=== PATIENT | male | born 1945 | race Caucasian/White ===

== ENCOUNTER 2016-08-09 16:00 | Inpatient (IN) | payer MEDICARE, OTHER ==
--- NOTE | 2016-08-09 16:09 | HP ---
SUPERVISING PHYSICIAN: Krish Hameed MD CHIEF COMPLAINT: Cough and shortness of breath. HISTORY OF PRESENT ILLNESS: This is a 71 year-old male patient who was seen in his primary care physician's office, Dr. Krish Hameed, today for a cough as well as shortness of breath. He has a longstanding history of chronic obstructive pulmonary disease as well as diabetes and esophageal cancer. He is normally very active but in the office today he was very fatigued, he was actually weak and stumbling around. His oxygen saturation in the office was 92 % but he had increased work of breathing. His chest x-ray showed left lower lobe pneumonia. He also has a history of deep venous thrombosis and is on Coumadin. Dr. Hameed called me for admission to the hospital. PAST MEDICAL HISTORY: 1. Acute CVA. 2. Chronic obstructive pulmonary disease. 3. Diabetes. 4. Esophageal cancer. 5. Hypertension. 6. Rheumatoid arthritis. 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 PAST SURGICAL HISTORY: 1. Hernia repair. 2. Pacemaker implantation. 3. Spinal surgery. 4. Breast biopsy. 5. Bilateral elbow surgery. 6. Bilateral shoulder surgery. 7. Multiple skin cancer removals. CURRENT MEDICATIONS: Outpatient medications are per the EMR and are awaiting verification. ALLERGIES: NO KNOWN DRUG ALLERGIES. SOCIAL HISTORY: He smoked for many years but quit approximately 5 years ago. He denies any ETOH or illicit drug use. He is , he has 7 children. REVIEW OF SYSTEMS: Positive for fatigue. Negative for fever or weight changes. HEENT: Positive for watery nasal discharge. Denies any ear pain, vision changes or sore throat. RESPIRATORY: Positive for cough and shortness of breath. Denies wheezing. CARDIAC: Denies chest pain, palpitations or tachycardia. GI: Denies nausea, vomiting, diarrhea, constipation or abdominal pain. NEUROLOGICAL: Denies dizziness, headache or seizures. PHYSICAL EXAMINATION: VITAL SIGNS: He is afebrile. Heart rate 62, blood pressure 97/68. Respiratory rate 20. 02 saturation is 92%. GENERAL: This is a 71 year-old male patient who is lying in his hospital bed. He is somewhat disheveled and he appears moderately ill. HEENT: Normocephalic and atraumatic. Pupils equal and reactive. Oropharynx is clear. NECK: Supple without masses. CHEST: He has coarse breath sounds throughout with occasional wheezing in the apices. He does have a slightly increase work of breathing. CARDIOVASCULAR: Regular rate and rhythm. ABDOMEN: Soft, nondistended, non-tender. Bowel sounds are positive. EXTREMITIES: No cyanosis, clubbing, or edema. NEUROLOGIC: He is awake, alert, and oriented x3. LABORATORY: At A, glucose 134, BUN 24, creatinine 1, sodium 141, potassium 4.3, chloride 106. C02 of 23, calcium 9.3. His INR was slightly elevated at 3.5, WBC elevated at 11,300. Hemoglobin 15.2, hematocrit 44.2, platelet count 148,000. All other labs and films have been reviewed via the EMR. ASSESSMENT: 1. Acute exacerbation of chronic obstructive pulmonary disease. 2. Left lower lobe pneumonia. 3. Weakness most likely secondary to #1 and #2. 4. History of DVT with elevated INR. 5. Hypertension. 6. Diabetes mellitus. 7. History of esophageal cancer. 8. History of CVA. PLAN: We will admit the patient to the hospital. We will give him routine as well as p.r.n. breathing treatments. He has been started on Levaquin as well as prednisone and also started him on sliding scale insulin. I will check his lab in the morning including a PT/INR. Also ordered bronchial hygiene and have encouraged good pulmonary toilet. Tomorrow I will need to order an ambulation study and we may need physical therapy if he continues to have the weakness. I will need to restart his Coumadin tomorrow at a lower dose as well as restart his home medications. Otherwise, we will monitor the patient closely and follow as needed. Dr. Hameed is the collaborating physician and available for comparison. #[id number] [facility]
[2016-08-09] MEDS ORDERED: LEVALBUTEROL NEBS 1.25 MG/3 ML VIAL INH PRN (17:11)
[2016-08-09] MEDS ORDERED: SODIUM CHLORIDE 0.9% (FLUSH) 10 ML SYG IV PRN (17:11)
[2016-08-09] MEDS ORDERED: GLUCAGON INJ 1 MG VIAL SUBCU PRN (17:11)
[2016-08-09] MEDS ORDERED: DEXTROSE 50% 25 GM/50 ML SYG IV PRN (17:11)
[2016-08-09] MEDS ORDERED: ACETAMINOPHEN 325 MG TAB PO PRN (17:11)
[2016-08-09] MEDS ORDERED: TEMAZEPAM 15 MG CAP PO PRN (17:11)
[2016-08-09] MEDS ORDERED: IV SET AND CAP CHANGE INJ INJ SCH (17:30)
[2016-08-09] MEDS: IPRATROPIUM/ALBUTEROL 3 ML VIAL INH SCH ×2 (17:52→21:00)
[2016-08-09] MEDS: methylPREDNISolone SODIUM SUC 125 MG/2 ML VIAL IV SCH ×2 (18:02→23:45)
[2016-08-09] MEDS: KCL 20MEQ/0.45% NS 1,000 ML IVS SCH (18:09)
[2016-08-09] MEDS: levoFLOXacin 750MG IV 750 MG in PREMIX BAG 1 BAG IVPB SCH (18:26)
[2016-08-09] MEDS: INSULIN LISPRO 100 UNITS/ML PEN SUBCU SCH (22:48)
[2016-08-10] MEDS ORDERED: LEVALBUTEROL NEBS 1.25 MG/3 ML VIAL INH SCH
[2016-08-10] MEDS: KCL 20MEQ/0.45% NS 1,000 ML IVS SCH ×2 (05:35→15:18)
[2016-08-10] MEDS: methylPREDNISolone SODIUM SUC 125 MG/2 ML VIAL IV SCH ×2 (05:35→11:43)
--- NOTE | 2016-08-10 06:58 | RAD ---
Clinical History : Pneumonia , MAIN Exam : PA and lateral views of the chest 08/10/2016 7:00 AM CDT Comparisons : Portable AP view of the chest August 30, 2014 Findings : There is a left subclavian MediPort with its tip in the distal SVC. There is a right chest 2-lead pacer in place. The lungs are low in volume which accentuates the pulmonary vasculature. There is patchy bibasilar subsegmental airspace disease. There is otherwise no focal consolidation or pleural effusion.. The heart is normal in size. The mediastinal contours are normal in appearance. There are vascular calcifications along the aortic arch. The thoracic spine is age appropriate. The shoulders are unremarkable. Limited evaluation of the upper abdomen demonstrates no gross abnormalities. Impression: Low lung volumes with patchy bibasilar airspace atelectasis versus infectious process. Electronically signed by: Zaynab Al MD 08/10/2016 6:58 AM CDT
[2016-08-10] MEDS: INSULIN LISPRO 100 UNITS/ML PEN SUBCU SCH ×4 (07:50→21:10)
[2016-08-10] MEDS: metFORMIN HCL 500 MG TAB PO SCH ×2 (07:56→17:08)
[2016-08-10] MEDS: METOPROLOL TARTRATE 50 MG TAB PO SCH ×2 (07:56→17:08)
[2016-08-10] MEDS ORDERED: AMIODARONE HCL 200 MG TAB ONE (08:56)
[2016-08-10] MEDS: POTASSIUM CHLORIDE 20 MEQ TAB PO SCH (09:00)
[2016-08-10] MEDS: TAMSULOSIN 0.4 MG CAP PO SCH (09:00)
[2016-08-10] MEDS: AMIODARONE HCL 200 MG TAB PO SCH (09:00)
[2016-08-10] MEDS: IPRATROPIUM/ALBUTEROL 3 ML VIAL INH SCH ×4 (09:11→20:35)
[2016-08-10] MEDS: LIDOCAINE 5% TD SCH (12:12)
[2016-08-10] MEDS: REMOVE OLD PATCH TOP SCH ×2 (12:15→21:18)
[2016-08-10] MEDS: levoFLOXacin 750MG IV 750 MG in PREMIX BAG 1 BAG IVPB SCH (17:10)
[2016-08-10] MEDS: methylPREDNISolone SODIUM SUC 40 MG/ML VIAL IV SCH (17:58)
[2016-08-10] MEDS ORDERED: PRAVASTATIN SODIUM 20 MG TAB PO SCH (21:00)
[2016-08-11] MEDS: methylPREDNISolone SODIUM SUC 40 MG/ML VIAL IV SCH ×2 (01:40→06:34)
[2016-08-11] MEDS: KCL 20MEQ/0.45% NS 1,000 ML IVS SCH (02:12)
[2016-08-11] MEDS: INSULIN LISPRO 100 UNITS/ML PEN SUBCU SCH (08:20)
[2016-08-11] MEDS: METOPROLOL TARTRATE 50 MG TAB PO SCH (08:21)
[2016-08-11] MEDS: POTASSIUM CHLORIDE 20 MEQ TAB PO SCH (08:21)
[2016-08-11] MEDS: metFORMIN HCL 500 MG TAB PO SCH (08:21)
[2016-08-11] MEDS: LIDOCAINE 5% TD SCH (08:30)
[2016-08-11] MEDS: IPRATROPIUM/ALBUTEROL 3 ML VIAL INH SCH ×2 (08:40→12:42)
--- NOTE | 2016-08-11 08:54 | PN ---
SUPERVISING PHYSICIAN: Krish Hameed MD DATE: 08/10/16 SUBJECTIVE: The patient is lying in his hospital bed. He denies any chest pain , abdominal pain, nausea or vomiting. He did say that he continues to get short of breath and he is very weak when he gets up, but he does feel better than yesterday. OBJECTIVE: VITAL SIGNS: Afebrile. Heart rate 70. Blood pressure 105/63. Respiratory rate 16. O2 saturation 91% on 2 liters nasal cannula. LUNGS: Coarse breath sounds throughout. He still does have an occasional respiratory wheeze in the apices, but improved over yesterday. CARDIAC: Regular rate and rhythm. ABDOMEN: Soft, nontender, nondistended. Bowel sounds are positive. NEUROLOGIC: Awake, alert and oriented times three. LABORATORY: WBC 5.7, hemoglobin 13.7, hematocrit 41.1. Sodium 137, potassium 4.5, chloride 105, carbon dioxide 24, BUN 24, creatinine 0.88. Blood sugars have run between 164 to 222. Chest x-ray per radiologic interpretation shows low lung volumes with patchy bibasilar airspace atelectasis versus infectious process. All other labs and films have been reviewed via the EMR. ASSESSMENT: 1. Acute exacerbation of chronic obstructive pulmonary disease. 2. Left lower lobe pneumonia, most likely community acquired and suspicious for strep pneumoniae, presently on Levaquin. 3. Weakness, most likely secondary to #1 and #2. 4. History of deep venous thrombosis with elevated INR. 5. Hypertension. 6. Diabetes mellitus. 7. History of esophageal cancer. 8. History of cerebrovascular accident. PLAN: We will continue present supportive care. I tapered down his steroids and will continue on his Levaquin. We will continue to monitor his blood cultures. I had ordered an ambulation study today and it has not bee completed as yet, so I will try to get that tomorrow to see how safe he will be to go home. Hopefully he can be discharged tomorrow or the next day as long as his oxygen saturations remain stable and he is safe to go home. I will also order some physical therapy. Otherwise, we will continue to monitor the patient closely and followup as needed. Dr. Hameed is the collaborating physician and available for consultation. #[id number] [facility]
[2016-08-11] MEDS: TAMSULOSIN 0.4 MG CAP PO SCH (09:38)
[2016-08-11] MEDS: AMIODARONE HCL 200 MG TAB PO SCH (09:38)
--- NOTE | 2016-08-11 14:24 | PCM.CORE ---
Physician DVT/VTE - Prophylaxis Currently: Patient already on anticoagulation therapy - Nurse DVT Assessment & Total Each Risk Factor Represents 3 Points: Medical PT with Hx of AR, CHF, Severe infection/sepsis Each Risk Factor Represents 2 Points: Age 60-74 Each Risk Factor is 1 Point: Serious Lung disease (pnemonia <1month, COPD, emphysema,etc) DVT Assessment Score: 6 - 5 or more Very High Risk Treatments: Early Ambulation *, Sequential Compression Device
[2016-08-11 15:50] VITALS: TEMP 97.6
[2016-08-11 15:55] VITALS: BP 114/68; O2SAT 98
--- NOTE | 2016-08-11 17:53 | DS ---
SUPERVISING PHYSICIAN: Kj Perdomo M.D. DISCHARGE DIAGNOSIS: 1. Acute exacerbation of chronic obstructive pulmonary disease. 2. Left lower lobe pneumonia, most likely community acquired and suspicious for strep pneumoniae, presently on Levaquin. 3. Weakness, most likely secondary to #1 and #2. 4. History of deep venous thrombosis with elevated INR. He has not been on Coumadin since his admission and his discharge INR has increased to 5.19. 5. Hypertension. 6. Diabetes mellitus. 7. History of esophageal cancer. 8. History of cerebrovascular accident. HISTORY OF PRESENT ILLNESS: This is a 71 year-old male patient who was seen in his primary care physician's office, Dr. Krish Hameed, for a cough as well as shortness of breath. He has a longstanding history of chronic obstructive pulmonary disease as well as diabetes and esophageal cancer. He is normally a very active person but in the office he was very fatigued as well as weak and was actually stumbling around. His oxygen saturation in the office was 92% but he had increased work of breathing. His chest x-ray showed a left lower lobe pneumonia. He also has a history of DVT and is on Coumadin. His INR was slightly elevated at the clinic and Dr. Hameed called me for hospital admission. HOSPITAL COURSE: The patient was placed on Levaquin as well as IV steroids. He was also given aggressive pulmonary hygiene with DuoNeb and Xopenex. His home medications were restarted with the exception of his Coumadin. He responded well to his therapy. Today, he is walking around in the hallways. His INR was repeated today and although his Coumadin has not been restarted, his INR has increased to 5.19. At this point, the patient states he feels much better and the patient has requested that he be discharged as his is now in the hospital and he is very concerned for her. VITAL SIGNS: He has been afebrile, oxygen saturation is in the mid 90s, blood pressure is 102/67. He did an ambulation study. During his study his saturations did not decrease below 95% without oxygen. DISCHARGE PLAN: The patient will be discharged home in stable condition. He is to resume his diabetic diet and increase his activity as tolerated. He will be sent home on Levaquin as well as a prednisone taper. His aerobic blood culture was positive at 48 hours. But final results are not available. He is to resume his DuoNeb and Albuterol. There was some question on his home medications about the breathing treatments he is actually on and according to his daughter as well as the patient, he is on DuoNeb and Albuterol, so he is to continue those. He has a followup with Dr. Hameed next , the at 2: 15. He is to discontinue his Coumadin until he goes to Dr. Hameed' office on Sunday to have his PT and INR done, and he will receive instructions from Dr. Hameed at that time as to what his Coumadin dosage should be. Otherwise he can call Dr. Hameed' office or return to the Emergency Room if there are any further complications or problems. DISCHARGE MEDICATIONS: 1. Flomax. 2. Pravastatin. 3. Potassium. 4. Metoprolol. 5. Metformin. 6. Lidocaine patch. 7. Amiodarone. 8. DuoNeb. 9. Levaquin. 10. Prednisone. #[id number] ADDENDUM: 08/13/16 Final aerobic blood culture shows no growth. [facility]
[2016-08-11] MEDS ORDERED: SODIUM CHLORIDE 0.9% (FLUSH) 10 ML SYG IV SCH (21:00)
== END 2016-08-11 15:00 | disposition home or self-care (01) | DRG 190 ==
LOC: MS 16:00
PROVIDERS: ADMIT Family Medicine; ATTEND Nurse Practitioner Acute Care
DX: J44.0 Chronic obstructive pulmonary disease with (acute) lower respiratory infection (principal); J13 Pneumonia due to Streptococcus pneumoniae; J44.1 Chronic obstructive pulmonary disease with (acute) exacerbation; R53.1 Weakness; I10 Essential (primary) hypertension; R79.1 Abnormal coagulation profile; M06.9 Rheumatoid arthritis, unspecified; E11.9 Type 2 diabetes mellitus without complications; Z86.73 Personal history of transient ischemic attack (TIA), and cerebral infarction without residual deficits; Z85.01 Personal history of malignant neoplasm of esophagus; Z86.718 Personal history of other venous thrombosis and embolism; Z95.0 Presence of cardiac pacemaker; Z87.891 Personal history of nicotine dependence; Z79.01 Long term (current) use of anticoagulants

== ENCOUNTER 2016-09-10 12:26 | Emergency (ER) | payer MEDICARE, OTHER ==
[2016-09-10 12:44] VITALS: TEMP 96.1
--- NOTE | 2016-09-10 13:59 | ED.PDOC ---
History of Present Illness - General Chief Complaint: Problem Stated Complaint: right sided back pain,difficulty urinating Time Seen by Provider: 09/10/16 12:37 Source: patient Exam Limitations: no limitations - History of Present Illness Initial Comments: Patient presents with right flank and lower back pain for 3 hours. He first felt it in [facility] this morning. The pain starts in the right flank and radiates to the groin. It is constant but intermittent in intensity. It is sharp and shooting in nature. No previous episodes. Denies hx of prostate problems. He has not noticed a change in urine color/dysuria/frequency. No fever. Timing/Duration: 1-3 hours Severity: moderate Improving Factors: nothing Worsening Factors: nothing Associated Symptoms: denies symptoms Allergies/Adverse Reactions: Allergies NO KNOWN ALLERGY Allergy (Unverified 07/09/14 10:39) Home Medications: Ambulatory Orders Amiodarone HCl 200 mg PO DAILY 08/09/16 Lidocaine Patch 5 % TD DAILY 08/09/16 Metformin HCl 500 mg PO BIDFD 08/09/16 Metoprolol Tartrate 50 mg PO BIDFD 08/09/16 Potassium Chloride [K-Tab] 20 meq PO DAILYBK 08/09/16 Pravastatin Sodium 40 mg PO BEDTIME 08/09/16 Tamsulosin [Flomax] 0.4 mg PO DAILY 08/09/16 Ipratropium/Albuterol [Duoneb] 3 ml INH RTQID 08/11/16 Levofloxacin [Levaquin] 500 mg PO DAILY #5 tab 08/11/16 Prednisone See Taper PO DAILY #30 shelbi 08/11/16 Review of Systems - Review of Systems Constitutional: States: no symptoms reported EENTM: States: no symptoms reported Respiratory: States: no symptoms reported Cardiology: States: no symptoms reported Gastrointestinal/Abdominal: States: no symptoms reported Genitourinary: States: see HPI Musculoskeletal: States: no symptoms reported Skin: States: no symptoms reported Neurological: States: no symptoms reported Endocrine: States: no symptoms reported Hematologic/Lymphatic: States: no symptoms reported Past Medical History (General) - Patient Medical History Hx Seizures: No Hx Stroke: Yes Hx Dementia: No Hx Asthma: No Hx of COPD: Yes Hx Cardiac Disorders: Yes - Pacemaker Hx Congestive Heart Failure: No Hx Pacemaker: Yes Hx Hypertension: No Hx Thyroid Disease: No Hx Diabetes: Yes Hx Gastroesophageal Reflux: No Hx Renal Disease: No Hx Cancer: Yes - Esophageal Hx of HIV: No Hx Hepatitis C: No Hx MRSA: No Surgical History: pacemaker - Vaccination History Hx Tetanus, Diphtheria Vaccination: Yes Hx Influenza Vaccination: Yes Hx Pneumococcal Vaccination: Yes - Social History Hx Tobacco Use: Yes Hx Chewing Tobacco Use: No Hx Alcohol Use: No Hx Substance Use: No Hx Substance Use Treatment: No Hx Depression: No Hx Physical Abuse: No Hx Emotional Abuse: No Hx Suspected Abuse: No Family Medical History - Family History Mother Family History: Unknown Living Status: Physical Exam - Physical Exam General Appearance: Alert Respiratory: lungs clear Cardiovascular/Chest: regular rate, rhythm Gastrointestinal/Abdominal: normal bowel sounds, non tender, soft Back Exam: CVA tenderness (R) Extremity: no pedal edema Skin Exam: normal color Progress - Progress Progress: 09/10/16 16:51 UA showed large blood. CT abd/pelvis showed enlarge prostate pressing on the bladder which could explain the hematuria. There was no obstructing stone but there was a free floating one in the left renal pelvis measuring 3 mm. There was some indication that the distal abdominal aorta was mildly dilated but it was unclear if there was disecction. Laboratories were taken and the creatinine checked. Repeat CT ab/pelvis with IV contrast confirmed mild aortic dilation but no aortic dissection. Patient was discharged with orders to not take his metformin for two days and to call his regular doctor tomorrow to address his prostate enlargement. Questions were elicited and answered. Patient voiced understanding and agreement with this plan. Departure - Departure Clinical Impression: Retention of urine, Prostatitis, Hematuria, Aortic aneurysm Disposition: Discharge to Home or Self Care Condition: Good Departure Forms: ED Discharge - Pt. Copy, Patient Portal Self Enrollment Diet: resume usual diet Activity: increase activity as tolerated Referrals: Krish Hameed MD [Primary Care Provider] - 1-2 Weeks Home Medications: Ambulatory Orders Amiodarone HCl 200 mg PO DAILY 08/09/16 Lidocaine Patch 5 % TD DAILY 08/09/16 Metformin HCl 500 mg PO BIDFD 08/09/16 Metoprolol Tartrate 50 mg PO BIDFD 08/09/16 Potassium Chloride [K-Tab] 20 meq PO DAILYBK 08/09/16 Pravastatin Sodium 40 mg PO BEDTIME 08/09/16 Tamsulosin [Flomax] 0.4 mg PO DAILY 05/17/17 Ipratropium/Albuterol [Duoneb] 3 ml INH RTQID 08/11/16 Levofloxacin [Levaquin] 500 mg PO DAILY #5 tab 08/11/16 Prednisone See Taper PO DAILY #30 shelbi 08/11/16 Additional Instructions: Do not restart your metformin until sunday. Call your regular doctor tomorrow and get an appointment regarding your enlarged prostate.
[2016-09-10 14:14] VITALS: O2SAT 96
--- NOTE | 2016-09-10 14:24 | CT ---
EXAM: CT ABDOMEN AND PELVIS WITHOUT CONTRAST DATE: 09/10/2016 1:39 PM CDT INDICATION: Hematuria, right flank pain COMPARISON: Chest x-ray 08/10/2016 TECHNIQUE: CT acquisition of the abdomen and pelvis after the intravenous administration contrast was performed. Coronal and sagittal reconstructions were performed. . Oral contrast none. Total radiation dose DLP: 839.21 mGy-cm FINDINGS: Lines, tubes and hardware: None. Lower thorax: Basilar mild interstitial lung disease. Subpleural patchy scarring in the lingula, image 9, series 2. Liver: Normal. Biliary tree: No intra- or extrahepatic biliary ductal dilation. Gallbladder: Normal. No CT evidence of gallstones. Pancreas: Fatty infiltration of the pancreas. Spleen: Normal. Adrenals: Normal. Kidneys and ureters: There is bilateral perinephric stranding. Mild right pelviectasis. There is a nonobstructive 3 mm calculus in the lower pole of left kidney. The ureters are normal in caliber without evidence of calculi. Bladder: Underdistended. The prostate indents into the inferior aspect. Reproductive organs: Mildly enlarged prostate gland measuring 5.7 cm. There is calcification of the corpora amylacea. Gastrointestinal tract: Nondistention of the descending colon and sigmoid colon. Remainder of the bowel is unremarkable. Appendix: Appendectomy. Peritoneum and retroperitoneum: No ascites or free air. No other fluid collection. Lymph nodes: Normal. Vasculature: Atherosclerosis of the abdominal aorta and iliac vessels with areas of focal dissection. Bones: There is a lytic lesion with start margins in the right iliac bone, image 69, series 2. There is posterior spinal fusion at L5-S1. Mild fusiform dilation of the distal abdominal aorta measuring 2.1 cm. Soft tissues: Normal. IMPRESSION: Mild fusiform ectasia of the distal abdominal aorta measuring up to 2.1 cm with atherosclerosis and focal areas of dissection. If there is clinical concern, a CTA of the abdomen and pelvis should be performed. Mild left pelviectasis without obstructive calculus identified. There is a 3 mm nonobstructive S and inferior pole of the kidney. Nonspecific right iliac lytic lesion. Recommend correlation with bone scan or MR on nonemergent basis. Mild interstitial lung disease in the visualized. AAA Size: Follow-up Recommendation : 2.6-2.9 cm Every 5 years 3.0-3.4 cm Every 3 years 3.5-3.9 cm Every 1 year 4.0-4.4 cm Every 1 year, vascular consultation recommended 4.5-5.4 cm Every 6 months, vascular consultation recommended >5.5 cm Vascular surgery consultation recommended 1. J Vasc Surg. 2009 Dec;50(4 Suppl):S2-49 2. For aortas with maximum diameter of 2.6-2.9 cm meeting the criteria for AAA (>50% of proximal normal segment) Electronically signed by: Lisa Desai MD 09/10/2016 2:22 PM CDT
[2016-09-10 16:17] VITALS: BP 125/77
--- NOTE | 2016-09-10 16:48 | CT ---
EXAM: CT ABDOMEN AND PELVIS WITH CONTRAST DATE: 09/10/2016 3:27 PM CDT INDICATION: Aortic dissection COMPARISON: Same day earlier CT abdomen pelvis without contrast TECHNIQUE: CT acquisition of the abdomen and pelvis after the intravenous administration contrast was performed. Coronal and sagittal reconstructions were performed. Further delayed images were performed. . Oral contrast none. Total radiation dose DLP: 784.85 mGy-cm FINDINGS: Lines, tubes and hardware: None. Lower thorax: Interstitial lung disease Liver: Normal. Biliary tree: No intra- or extrahepatic biliary ductal dilation. Gallbladder: Normal. No CT evidence of gallstones. Pancreas: Fatty infiltration Spleen: Normal. Adrenals: Normal. Kidneys and ureters: Too small to characterize hypodensity in superior pole of right kidney, image 29 and medially, image 37. 3 mm left renal calculus is again seen. Prior mild left pelviectasis has resolved and may have been due to mild reflux. Bladder: Normal. Reproductive organs: Prostamegaly with indentation and inferior aspect of the bladder. It measures 5.6 cm. Gastrointestinal tract: Normal caliber. Appendix: Appendectomy Peritoneum and retroperitoneum: No ascites or free air. Lymph nodes: Normal. Vasculature: Atherosclerosis calcification of the abdominal aorta with calcified and noncalcified areas of plaque. There is no evidence of dissection. Mild fusiform dilation of the distal aorta. Atherosclerotic calcification also present in the iliac vessels with calcified and noncalcified plaque. Bones: Lytic right iliac lesion again seen. Soft tissues: Normal. IMPRESSION: No evidence of aortic dissection. Mild fusiform dilation of the distal abdominal aorta with calcified and noncalcified plaque. Recommend follow-up with ultrasound in one year. Heterogeneous enlarged prostate gland can be correlated with PSA levels. Other findings are unchanged as earlier perform CT. Please see above. Electronically signed by: Lisa Desai MD 09/10/2016 4:47 PM CDT
== END 2016-09-10 17:00 | disposition home or self-care (01) ==
LOC: ER 12:26
DX: N41.9 Inflammatory disease of prostate, unspecified (principal); R33.9 Retention of urine, unspecified; R31.9 Hematuria, unspecified; I71.4 Abdominal aortic aneurysm, without rupture; N20.0 Calculus of kidney; E11.9 Type 2 diabetes mellitus without complications; J44.9 Chronic obstructive pulmonary disease, unspecified; Z95.0 Presence of cardiac pacemaker; Z86.73 Personal history of transient ischemic attack (TIA), and cerebral infarction without residual deficits; Z85.01 Personal history of malignant neoplasm of esophagus; Z79.899 Other long term (current) drug therapy; Z87.891 Personal history of nicotine dependence

== ENCOUNTER → 2016-09-11 | Outpatient (CLI) | payer MEDICARE, OTHER | END | disposition home or self-care (01) | LOC: GMAJ 10:29 | PROVIDERS: ATTEND Family Medicine | DX: N41.0 Acute prostatitis (principal); Z12.5 Encounter for screening for malignant neoplasm of prostate ==

== ENCOUNTER → 2016-09-12 | Outpatient (CLI) | payer MEDICARE, OTHER | END | disposition home or self-care (01) | LOC: GMA 15:51 | PROVIDERS: ATTEND Nurse Practitioner Acute Care | DX: N41.0 Acute prostatitis (principal) ==

== ENCOUNTER 2017-07-11 10:54 | Emergency (ER) | payer MEDICARE, OTHER ==
--- NOTE | 2017-07-11 11:27 | ED.PDOC ---
History of Present Illness - General Chief Complaint: GI Problem Stated Complaint: Unable to have a bowel movement Time Seen by Provider: 07/11/17 11:21 Information Source: patient, family Exam Limitations: no limitations Additional Information: THIS PATIENT COMES TO THE ED WITH A ONE WEEK HISTORY OF CONSTIPATION. HE VOICES THAT HE HAS BEEN UNABLE TO HAVE A BM AND NOW C/O PAIN TO THE ABDOMEN AND RECTAL AREA. HE HAS BEEN DIGGING THE ANAL AND RECAL AREA WITH HIS HAND AND NOW C/O RECTAL BLEEDING. THE PATIENT HAS A HX OF CA OF THE ESOPHAGUS AND ATRIAL FIBRILLATION. ON COUMADIN AND ON AMIODARONE. HE USED TO HAVE HTN AND DIABETES MELLITUS ii BUT AFTER HE DEVELOPED CANCER OF THE ESOPHAGUS HE HAS LOST ABOUT 40 LBS. HE NO LONGER TAKES MEDS. - History of Present Illness Abdominal Pain Onset Location: generalized abdomen Review of Systems - Review of Systems Constitutional: States: malaise EENTM: States: no symptoms reported Respiratory: States: no symptoms reported Cardiology: States: no symptoms reported Gastrointestinal/Abdominal: States: abdominal pain, constipation, other - RECTAL BLEEDING Genitourinary: States: no symptoms reported Musculoskeletal: States: no symptoms reported Skin: States: no symptoms reported Neurological: States: no symptoms reported Endocrine: States: no symptoms reported Hematologic/Lymphatic: States: no symptoms reported All other Systems: Reviewed and Negative, No Change from Baseline Past Medical History (General) - Patient Medical History Hx Seizures: No Hx Stroke: Yes Hx Dementia: No Hx Asthma: No Hx of COPD: Yes Hx Cardiac Disorders: Yes - Pacemaker Hx Congestive Heart Failure: No Hx Pacemaker: Yes Hx Hypertension: No Hx Thyroid Disease: No Hx Diabetes: Yes Hx Gastroesophageal Reflux: No Hx Renal Disease: No Hx Cancer: Yes - Esophageal Hx of HIV: No Hx Hepatitis C: No Hx MRSA: No - Vaccination History Hx Tetanus, Diphtheria Vaccination: Yes Hx Influenza Vaccination: No Hx Pneumococcal Vaccination: No - Social History Hx Tobacco Use: Yes Hx Chewing Tobacco Use: No Hx Alcohol Use: No Hx Substance Use: No Hx Substance Use Treatment: No Hx Depression: No Hx Physical Abuse: No Hx Emotional Abuse: No Hx Suspected Abuse: No Family Medical History - Family History Mother Family History: Unknown Living Status: Physical Exam - Physical Exam General Appearance: Alert, Well Developed, Well Groomed, Well Hydrated, Well Nourished, Other - IN MILD DISTRESS Eyes, Ears, Nose, Throat Exam: PERRL/EOMI, normal ENT inspection, other - PTOSIS OF THE RIGHT UPPER LID-SEQUALAE FROM A STROKE Neck: non-tender, full range of motion, supple, normal inspection Respiratory: chest non-tender, lungs clear, normal breath sounds, no respiratory distress, no accessory muscle use Cardiovascular/Chest: normal peripheral pulses, regular rate, rhythm, no edema, no gallop, no JVD, no murmur Peripheral Pulses: No deficit Gastrointestinal/Abdominal: normal bowel sounds, distended, tenderness - TO ALL QUADRANTS Back Exam: normal inspection Extremity: normal range of motion Neurologic: conservation coordinator II-XII nml as tested, oriented x 3 Skin Exam: normal color, warm/dry Lymphatic: no adenopathy - THE PATIENT HAS A G-TUBE Progress - Progress Progress: 07/11/17 12:53 THE LAB AND IMAGING HAS BEEN REPORTED. HE HAS PNEUMOPERITONEUM, LIKELY TO BE DUE FROM THE RECENT PROCEDURE. THE WBC IS 13.8 WITH 90% NEUTROPHILS. DR. CALDERÓN HAPPENED TO BE IN THE BUILDING AND HE CAME AND CONSULTED ON THE PATIENT. A RECTAL WAS PERFORMED BY HIM AND THERE WAS SOME HARD STOOL. HE RECOMMENDED AN ENEMA AND A CT ABDOMEN AND PELVIS WITH CONTRAST. - Results/Orders Results/Orders: LACTIC ACID IS 1.4 NORMAL. THE PATIENT WAS GIVEN AN ENEMA WITH POOR RESULTS. HE WILL BE GOING TO CT ABDOMEN SHORTLY CT ABDOMEN AND PELVIS REVEALS NO AREAS OF INFLAMMATION OR EDEMA AND NO OBSTRUCTION OR LEAKAGE. IT SEEMS THAT THE PNEUMOPERITONEUM IS FROM THE RECENT PROCEDURE. I HAVE NOTIFIED DR. THEO CALDERÓN AND THE PATIENT WILL BE DISCHARGED HOME WITH MIRALAX, FLEETS ENEMAS AND WITH GO LYTELY. Departure - Departure Clinical Impression: Constipation Qualifiers: Constipation type: unspecified constipation type Qualified Code(s): K59.00 - Constipation, unspecified Time of Disposition: 16:54 Disposition: Discharge to Home or Self Care Condition: Fair Departure Forms: ED Discharge - Pt. Copy, Patient Portal Self Enrollment Instructions: DI for Constipation Diet: bland diet Referrals: Krish Hameed MD [Primary Care Provider] - 1-2 Weeks Prescriptions: Peg [id number] Bicarb-Sod Ch [Golytely] 1 casey PO 5XD #1 casey Home Medications: Ambulatory Orders Amiodarone HCl 200 mg PO DAILY 08/09/16 Lidocaine Patch 5 % TD DAILY 08/09/16 Metformin HCl 500 mg PO BIDFD 08/09/16 Metoprolol Tartrate 50 mg PO BIDFD 08/09/16 Potassium Chloride [K-Tab] 20 meq PO DAILYBK 08/09/16 Pravastatin Sodium 40 mg PO BEDTIME 08/09/16 Tamsulosin [Flomax] 0.4 mg PO DAILY 08/09/16 Ipratropium/Albuterol [Duoneb] 3 ml INH RTQID 08/11/16 Levofloxacin [Levaquin] 500 mg PO DAILY #5 tab 08/11/16 Prednisone See Taper PO DAILY #30 shelbi 08/11/16 Peg [id number] Bicarb-Sod Ch [Golytely] 1 casey PO 5XD #1 casey 07/11/17
--- NOTE | 2017-07-11 12:22 | RAD ---
EXAM DESCRIPTION: Abdomen Series CLINICAL HISTORY: 72 years Male, abdominal pain COMPARISON: None. TECHNIQUE: Obstructive series including chest x-ray FINDINGS: Abnormal lucency under the diaphragm is seen consistent with pneumoperitoneum. This could be related to perforation of hollow viscus or recent laparoscopic surgery. Clinical correlation recommended. In the chest, Port-A-Cath on the left is seen with tip in the region of the upper right atrium. Cardiac pacer is in place with electrode lead tips in the region of right atrium and right ventricle. Epicardial pacer wires are present. Heart size is normal. No congestive failure. Minimal discoid atelectasis lung bases. Plate and screws are seen in the C-spine. Degenerative changes are seen in the shoulders with chronic rotator cuff atrophy. Gastrostomy tube is present in the region of the stomach. No small bowel dilatation to suggest obstruction. Supine x-ray view of abdomen shows orthopedic hardware at the lumbosacral junction and moderate amount fecal material in the colon. Degenerative spurring is seen in the L-spine. I called Dr. Mattson in the emergency department at 12:17 PM on 07/11/2017, to discuss the results and the patient had placement of feeding tube five days ago which may account for pneumoperitoneum. The amount of air is somewhat greater than usually expected one week after such a procedure. IMPRESSION: Pneumoperitoneum. See above. Electronically signed by: Diaz Georges MD 07/11/2017 12:21 PM CDT
[2017-07-11] MEDS: ONDANSETRON INJ 4 MG/2 ML VIAL IV ONE (12:39)
[2017-07-11] MEDS: MORPHINE SULFATE INJ 10 MG/ML VIAL IV ONE (12:39)
[2017-07-11 16:13] VITALS: O2SAT 96
--- NOTE | 2017-07-11 16:24 | CT ---
EXAM DESCRIPTION: Abdomen/Pelvis w/Contrast CLINICAL HISTORY: 72 years Male abdominal pain, pneumoperitoneum COMPARISON: 09/10/2016 TECHNIQUE: Contiguous axial images obtained through the abdomen and pelvis following IV contrast. Reformatted images obtained. This exam was performed according to our department optimization program which includes automated exposure control, adjustment of the mA and/or kv according to patient size and/or use of iterative reconstruction technique. FINDINGS: Gas in aorta is mildly prominent measuring 4.1 cm in the ascending segment. There is calcification in the aorta and its branches. Transvenous pacemaker and epicardial leads are noted. The liver, spleen and pancreas appear stable. There is a small hiatal hernia. No adrenal masses. The kidneys appear unremarkable. No hydronephrosis. The gallbladder is visualized. There is calcification in the abdominal aorta. Ectasia of the distal aorta is noted measuring 2.3 cm. No evidence of dissection. There is free intraperitoneal air as noted on the abdominal plain film. There is a PEG tube in place which appears to be within the gastric body. Suspect that the pneumoperitoneum is related to recent PEG tube placement. There is no additional evidence to suggest bowel obstruction or evidence of significant inflammatory change in the abdomen or pelvis. Trace amount of fluid is seen in the pelvis. This is also likely related to the recent procedure. There is also a small amount of fluid along the inferior aspect of the stomach anterior to the pancreas also likely related to small amount of residual fluid or hemorrhage from the PEG tube placement Moderate fecal material in the rectum and sigmoid colon which May reflect constipation. Spinal fusion at L5-S1. The appendix is not seen. IMPRESSION: Free intraperitoneal air as was noted on the plain film. Suspect that this is related to the recent placement of a PEG tube. Possibility of a small amount of gas leakage around the insertion of the PEG tube is not excluded. There is a small amount of fluid in the pelvis as well as a small amount of fluid in the central upper abdomen also likely related to recent PEG tube placement There is no evidence suggest bowel obstruction, bowel wall thickening or inflammation Additional changes as above Electronically signed by: Barbie Shahid MD 07/11/2017 4:22 PM CDT
[2017-07-11 18:18] VITALS: BP 112/64; TEMP 97
== END 2017-07-11 17:03 | disposition home or self-care (01) ==
LOC: ER 10:54
DX: K59.00 Constipation, unspecified (principal); J44.9 Chronic obstructive pulmonary disease, unspecified; E11.9 Type 2 diabetes mellitus without complications; Z95.0 Presence of cardiac pacemaker; Z85.01 Personal history of malignant neoplasm of esophagus
CPT/HCPCS: 36415; 74019; 74177; 80053; 83605; 85025; J2270; J2405

== ENCOUNTER → 2017-07-24 | Outpatient (CLI) | payer MEDICARE, OTHER | LOC: BFHH 10:32 | PROVIDERS: ATTEND Internal Medicine Hematology & Oncology | DX: R13.10 Dysphagia, unspecified (principal); J44.9 Chronic obstructive pulmonary disease, unspecified; K21.9 Gastro-esophageal reflux disease without esophagitis; I10 Essential (primary) hypertension; I48.91 Unspecified atrial fibrillation; C15.9 Malignant neoplasm of esophagus, unspecified; E11.9 Type 2 diabetes mellitus without complications; Z85.01 Personal history of malignant neoplasm of esophagus ==

== ENCOUNTER 2017-11-19 16:37 | Inpatient (IN) | payer MEDICARE, OTHER ==
[2017-11-19] MEDS ORDERED: ACETAMINOPHEN 325 MG TAB GT ONE (17:12)
[2017-11-19] MEDS ORDERED: cefTRIAXone SODIUM 1 GM in SODIUM CHL 0.9% 50ML MIN-BAG+ 50 ML IVPB ONE (17:16)
[2017-11-19] MEDS ORDERED: cefTRIAXone SODIUM 1 GM VIAL ONE (17:35)
[2017-11-19] MEDS ORDERED: SODIUM CHL 0.9% 50ML MIN-BAG+ 50 ML IVPB ONE ×3 (17:35→23:16)
--- NOTE | 2017-11-19 17:37 | CT ---
EXAM DESCRIPTION: Head CLINICAL HISTORY: ALTERED MENTAL COMPARISON: Previous study February 11, 2015 TECHNIQUE: Noncontrast head CT was performed with routine protocol. FINDINGS: Normal glaser-white matter differentiation. Ventricles and sulci are prominent consistent with age-related cerebral volume loss. Low density white matter is consistent with chronic microvascular ischemic change. No high density hemorrhage, focal edema or shift of the midline. No sulcal effacement. Normal orbital contents. Basilar cisterns appear clear. Intact calvarium with no fracture or lytic lesion. Normal aeration of tympanic cavities and mastoid air cells. No fluid levels in the paranasal sinuses. Skull base appears intact. Symmetrical internal auditory canals. Coronal and sagittal reformatted images confirm the findings. No worrisome change since previous study. IMPRESSION: No acute intracranial pathologic process. This exam was performed according to our departmental dose-optimization program, which includes automated exposure control, adjustment of the mA and/or kV according to patient size and/or use of iterative reconstruction technique. Total DLP equals 859.97 mGycm. Electronically signed by: Diaz Georges MD 11/19/2017 5:36 PM CDT
[2017-11-19] MEDS ORDERED: SODIUM CHLORIDE 0.9% 1000ML 1,000 ML ONE (18:19)
--- NOTE | 2017-11-19 18:20 | CT ---
EXAM: Chest w/o Contrast CLINICAL INDICATION: 72-year-old male with fever post upper GI. COMPARISON: None. EXAMINATION: CT chest was performed without contrast. This exam was performed according to our departmental dose optimization program which includes use of automated exposure control, adjustment of the mA and/or kV according to patient size and/or use of iterative reconstruction technique. FINDINGS: Chest: Large confluent reticulation and groundglass opacification of the LEFT lower lobe, with patchy areas of reticulation and groundglass interstitial opacification of the RIGHT upper and middle lobe concerning for multifocal pneumonia. Please correlate with patient clinical findings and consider follow-up for resolution to exclude the possibility of infiltrative neoplasm. Emphysema. No pneumothorax or pleural effusions. Heart size within normal limits. No pericardial effusion. Incompletely visualized transthoracic cardiac pacemaker wires on the LEFT terminating off the ipxvc-lb-poil of the examination, and on the RIGHT terminating at the level of the RIGHT chest wall battery pack. LEFT chest wall port catheter tip terminates at the SVC RIGHT atrial junction. Nonspecific thickening of the esophagus with thickening at the level of the gastroesophageal junction measuring up to 13 mm, may be postprocedural in etiology. Frothy fluid collection present within the mid esophagus may be secondary to secretions or reflux. There is dependent basilar atelectasis and scarring. The tracheobronchial airways are patent. No significant mediastinal or axillary lymphadenopathy by CT measurement criteria. Limited evaluation of the upper abdomen shows no acute intra-abdominal abnormalities. Incompletely visualized feeding tube at the level of the gastric body. External streak artifact limits evaluation through the upper abdomen. Diffuse fatty atrophy and replacement of the pancreas. The osseous structures review degenerative change. IMPRESSION: 1. Large confluent reticulation and groundglass opacification of the LEFT lower lobe, with patchy areas of reticulation and groundglass interstitial opacification of the RIGHT upper and middle lobe concerning for multifocal pneumonia. Please correlate with patient clinical findings and consider follow-up for resolution to exclude the possibility of infiltrative neoplasm. 2. Emphysema. 3. Nonspecific thickening of the esophagus, at the level of the gastroesophageal junction measuring up to 13 mm in thickness. Electronically signed by: Sandi Pennington MD 11/19/2017 6:19 PM CDT
[2017-11-19] MEDS ORDERED: SODIUM CHLORIDE 0.9% 1000ML 1,000 ML IVS PRN (18:23)
[2017-11-19] MEDS ORDERED: MEROPENEM 1 GM in SODIUM CHL 0.9% 50ML MIN-BAG+ 50 ML IVPB ONE (18:27)
[2017-11-19] MEDS ORDERED: MEROPENEM 1 GM VIAL IVPB ONE ×2 (18:38→23:16)
--- NOTE | 2017-11-19 18:38 | ED.PDOC ---
History of Present Illness - General Chief Complaint: Fever Time Seen by Provider: 11/19/17 16:50 Source: patient, family Exam Limitations: no limitations - History of Present Illness Initial Comments: The patient is a 72-year-old male presenting to the emergency room secondary to some confusion. The patient had a EGD performed with Dr. bernardo at [facility] this morning. He was released around 1 PM. Over the next 4-5 hours he started becoming more altered. By the time he arrived here he was showing some mild confusion but also had a temperature of 104.6. Blood pressures were mildly low upon arrival here in the 90s over 60s. He had been feeling fine before the endoscopy. He does have a history of esophageal cancer which is the reason that he was receiving his periodic endoscopy with the receiving worker. He does have a history of chronic lung disease and atrial fibrillation and does appear to be anticoagulated. Even at this time he does not appear to have any respiratory symptoms. Timing/Duration: 4-6 hours Severity: moderate Improving Factors: nothing Worsening Factors: nothing Associated Symptoms: diaphoresis, malaise Allergies/Adverse Reactions: Allergies NO KNOWN ALLERGY Allergy (Unverified 07/09/14 10:39) Home Medications: Ambulatory Orders Amiodarone HCl 100 mg PO DAILY 08/09/16 Lidocaine Patch 5 % TD DAILY 08/09/16 Tamsulosin [Flomax] 0.4 mg PO DAILY 08/09/16 Ipratropium/Albuterol [Duoneb] 3 ml INH RTQID 08/11/16 Citalopram Hydrobromide [Citalopram] 10 mg PO DAILY 11/19/17 Review of Systems - Review of Systems Constitutional: States: diaphoresis, fever, malaise EENTM: States: no symptoms reported - chronic changes only Respiratory: States: no symptoms reported Cardiology: States: no symptoms reported Gastrointestinal/Abdominal: States: see HPI Genitourinary: States: no symptoms reported Musculoskeletal: States: no symptoms reported Skin: States: no symptoms reported Neurological: States: other - confusion Endocrine: States: no symptoms reported All other Systems: No Change from Baseline Past Medical History (General) - Patient Medical History Hx Seizures: No Hx Stroke: Yes Hx Dementia: No Hx Asthma: No Hx of COPD: Yes Hx Cardiac Disorders: Yes - Pacemaker Hx Congestive Heart Failure: No Hx Pacemaker: Yes Hx Hypertension: No Hx Thyroid Disease: No Hx Diabetes: Yes Hx Gastroesophageal Reflux: No Hx Renal Disease: No Hx Cancer: Yes - Esophageal Hx of HIV: No Hx Hepatitis C: No Hx MRSA: No - Vaccination History Hx Tetanus, Diphtheria Vaccination: Yes Hx Influenza Vaccination: No Hx Pneumococcal Vaccination: No - Social History Hx Tobacco Use: Yes Hx Chewing Tobacco Use: No Hx Alcohol Use: No Hx Substance Use: No Hx Substance Use Treatment: No Hx Depression: No Hx Physical Abuse: No Hx Emotional Abuse: No Hx Suspected Abuse: No Family Medical History - Family History Mother Family History: Unknown Living Status: Physical Exam - Physical Exam General Appearance: Alert, Ill Appearing Eye Exam: right other - hronic changes to the right eye, left normal Ears, Nose, Throat: hearing grossly normal, normal pharynx Neck: full range of motion Respiratory: no respiratory distress, no accessory muscle use, rales - to the left base but good air movement Cardiovascular/Chest: normal peripheral pulses, no edema Peripheral Pulses: radial,right: 2+, radial,left: 2+ Gastrointestinal/Abdominal: non tender - G-tube in place, soft Rectal Exam: deferred Back Exam: normal inspection, no vertebral tenderness Extremity: non-tender, no calf tenderness, normal capillary refill, other - he does have trace edema bilateral lower extremities Neurologic: alert, other - initially the patient did exhibit some delirium which has improved significantly with correction the fever. Skin Exam: diaphoresis Comments: Vital Signs - 24 hr 11/19/17 11/19/17 11/19/17 16:48 17:30 18:07 Temperature 104.6 F H 103.0 F H Pulse Rate [ 102 H 99 H 97 H right brachial] Respiratory 20 22 18 Rate Blood Pressure 99/64 98/64 114/68 [left brachial] O2 Sat by Pulse 94 L 97 97 Oximetry Progress - Progress Progress: 11/19/17 18:42 the patient is a 72-year-old male presenting to emergency room secondary to delirium associated with what is most likely an acute pneumonia giving him a significant fever. He is mentating much better after the Tylenol. He is receiving a liter of IV fluids. Initially upon his arrival he did receive a gram of Rocephin even before the workup could be started. CT scan of the chest shows the pneumonia and no evidence of free air in the mediastinum. This is presumably an aspiration type pneumonia. The patient is also currently receiving a dose of meropenem. consideration could certainly be given to adding vancomycin. Laboratory work up is reassuring currently however I do greatly suspect that the next set of laboratory work will look significantly worse, even if he is improving clinically. Blood cultures have been drawn. He has not been unable to cough up anything for a sputum culture. - Results/Orders Results/Orders: the patient has a large area of left-sided pneumonia that appears to be acute on the CT scan of the chest. No evidence of free air in the mediastinum. 11/19/17 17:42 BLOOD CULTURE Stat Laboratory Results - last 24 hr 11/19/17 11/19/17 11/19/17 16:30 16:30 16:30 WBC 7.7 RBC 3.64 L Hgb 11.3 L Hct 33.7 L MCV 92.5 MCH 31.0 MCHC 33.5 RDW 18.1 H Plt Count 213 MPV 8.7 Absolute Neuts (auto) 6.00 Absolute Lymphs (auto) 1.10 Absolute Monos (auto) 0.50 Absolute Eos (auto) 0.20 Absolute Basos (auto) 0.00 Neutrophils % 77.4 Lymphocytes % 13.9 L Monocytes % 6.3 Eosinophils % 2.3 Basophils % 0.1 PT 22.3 H INR 2.25 H PTT (SP) 38.1 H Sodium Potassium Chloride Carbon Dioxide Anion Gap BUN Creatinine BUN/Creatinine Ratio Random Glucose Serum Osmolality Lactic Acid Calcium Total Bilirubin AST ALT Alkaline Phosphatase Creatine Kinase 16 L CK-MB (CK-2) 1.0 CK-MB (CK-2) % Not Reportable Troponin I < 0.02 B-Natriuretic Peptide 119.0 H Serum Total Protein Albumin Globulin Albumin/Globulin Ratio Amylase 63 Lipase Urine Color Urine Appearance Urine pH Ur Specific [place] Urine Protein Urine Glucose (UA) Urine Ketones Urine Blood Urine Nitrite Urine Bilirubin Urine Urobilinogen Ur Leukocyte Esterase Urine RBC Urine WBC Ur Epithelial Cells Urine Bacteria 11/19/17 11/19/17 11/19/17 16:30 17:42 17:50 WBC RBC Hgb Hct MCV MCH MCHC RDW Plt Count MPV Absolute Neuts (auto) Absolute Lymphs (auto) Absolute Monos (auto) Absolute Eos (auto) Absolute Basos (auto) Neutrophils % Lymphocytes % Monocytes % Eosinophils % Basophils % PT INR PTT (SP) Sodium 134 L Potassium 3.5 L Chloride 99 L Carbon Dioxide 25 Anion Gap 13.5 BUN 17 Creatinine 0.83 BUN/Creatinine Ratio 20.5 H Random Glucose 165 H Serum Osmolality 273.5 L Lactic Acid 1.4 Calcium 8.5 Total Bilirubin 0.7 AST 21 ALT 22 Alkaline Phosphatase 109 Creatine Kinase CK-MB (CK-2) CK-MB (CK-2) % Troponin I B-Natriuretic Peptide Serum Total Protein 6.1 L Albumin 3.1 L Globulin 3.0 Albumin/Globulin Ratio 1.0 L Amylase Lipase 16 L Urine Color Dk yellow Urine Appearance Sl cloudy Urine pH 6.0 Ur Specific [place] 1.025 Urine Protein 30 Urine Glucose (UA) 100 H Urine Ketones Negative Urine Blood Moderate H Urine Nitrite Negative Urine Bilirubin Negative Urine Urobilinogen 1.0 Ur Leukocyte Esterase Negative Urine RBC 20-30 H Urine WBC 0-1 Ur Epithelial Cells 0-1 Urine Bacteria Rare Departure - Departure Clinical Impression: Aspiration pneumonia Qualifiers: Aspiration pneumonia type: due to gastric secretions Laterality: left Lung location: unspecified part of lung Qualified Code(s): J69.0 - Pneumonitis due to inhalation of food and vomit Disposition: Admit Patient Referrals: Krish Hameed MD [Primary Care Provider] - 1-2 Weeks Home Medications: Ambulatory Orders Amiodarone HCl 100 mg PO DAILY 08/09/16 Lidocaine Patch 5 % TD DAILY 08/09/16 Tamsulosin [Flomax] 0.4 mg PO DAILY 08/09/16 Ipratropium/Albuterol [Duoneb] 3 ml INH RTQID 08/11/16 Citalopram Hydrobromide [Citalopram] 10 mg PO DAILY 11/19/17 Decision To Admit - Decistion To Admit Decision to Admit Reason: Medical Nature Decision to Admit Date: 11/19/17 Decision to Admit Time: 18:45
[2017-11-19] MEDS ORDERED: SODIUM CHLORIDE 0.9% 1000ML 500 ML IVS ONE (19:12)
[2017-11-19] MEDS ORDERED: methylPREDNISolone SODIUM SUC 125 MG/2 ML VIAL IV ONE (19:13)
[2017-11-19] MEDS ORDERED: VANCOMYCIN HCL INJ 1,000 MG in SODIUM CHLORIDE 0.9% 250ML 250 ML IVPB ONE (19:47)
[2017-11-19] MEDS ORDERED: VANCOMYCIN HCL INJ 1,000 MG VIAL IVPB ONE (20:01)
[2017-11-19] MEDS ORDERED: SODIUM CHLORIDE 0.9% 250ML 250 ML ONE (20:01)
--- NOTE | 2017-11-19 21:43 | HP ---
SUPERVISING PHYSICIAN: Ras Sifuentes M.D. CHIEF COMPLAINT: Altered mental status and fever. HISTORY OF PRESENT ILLNESS: This is a 72 year-old male patient who came to the Emergency Room after suddenly becoming confused. He was in [place] earlier today and got an EGD with Dr. Noel early this morning. The patient has a history of esophageal cancer and this was a routine study that he was having done. He was released from the hospital around 1:00 PM but over the next 4 to 5 hours after that he began to have altered mental status. That is why he was brought to the Emergency Room and upon arrival was noted to have a temperature of 104.6. Blood pressures were in the 90s systolically. His workup included labs as well as CT scan of the chest and the head due to the altered mental status. His CT scan of the brain did not show any acute findings. CT scan of the chest, however, showed left lower lobe ground glass opacification as well as right upper and middle lobe consolidation all concerning for pneumonia. Also, it did not rule out that it could possibly be an infiltrative neoplasm that would need followup on whether or not the infiltrate resolved. Anyhow, he did have a normal white count, however the patient is on chemotherapy for esophageal cancer and actually had a dose last Sunday. While in the Emergency Room he was given IV bolus fluids. His blood pressure went anywhere from the 80s to 90s systolically. Initially the E. R. physician felt that he could be septic, however, the family states his blood pressure is always on the low side. They even went home to get his blood pressure readings and in fact the patient always runs in the 80s and 90s systolically. The patient's mental status improved throughout the admission and his fever actually improved as well. He was given Rocephin, Merrem and actually vancomycin for antibiotic therapy. For these reasons, he has been referred for admission. At time of examination the patient is alert, a little bit tachypneic but without distress. He does have a little bit of confusion as well. PAST MEDICAL HISTORY: 1. Cerebrovascular accident. 2. Chronic obstructive pulmonary disease. 3. Diabetes. 4. Esophageal cancer. 5. Hypertension. 6. Rheumatoid arthritis. 7. 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 PAST SURGICAL HISTORY: 1. Hernia repair. 2. Pacemaker placement. 3. Spinal surgery. 4. Breast biopsy. 5. Bilateral elbow surgery. 6. Bilateral shoulder surgery. 7. PEG placement. 8. Multiple skin cancer removal. CURRENT MEDICATIONS: Please see the EMR record for those medications as they are still being verified. ALLERGIES: NO KNOWN DRUG ALLERGIES. FAMILY HISTORY: Reviewed and he does not really know any significant family history with his mother and father at this time. SOCIAL HISTORY: The patient has a history of smoking but quit approximately 6 years ago. No alcohol. No illicit drugs. REVIEW OF SYSTEMS: CONSTITUTIONAL: Positive for fever and chills. No recent weight loss or weight gain. HEENT: No headaches, nasal congestion or throat pain. RESPIRATORY: Positive for cough. No shortness of breath. No pleuritic chest pain. CARDIOVASCULAR: No chest pain, palpitations or peripheral edema. GASTROINTESTINAL: No nausea, vomiting, diarrhea or constipation. No abdominal pain but he does have esophageal cancer and had an EGD today, and he has a chronic PEG in place. GENITOURINARY: No dysuria, frequency or flank pain. HEMATOLOGIC: He does have a history of blood clots and is on chronic Warfarin therapy. He has not have any transfusion reactions. MUSCULOSKELETAL: Positive for chronic back pain. No joint pain or joint swelling at this time. NEUROLOGIC: Positive for confusion earlier but no syncope, seizures or paresthesias. ENDOCRINE: No polydipsia, polyuria or polyphagia. No heat or cold intolerance. PHYSICAL EXAMINATION: VITAL SIGNS: Blood pressure 105/68, heart rate 78, respiratory rate 20, temperature is currently 98.7 but was as high as 104.6 in the Emergency Room. O2 saturation was 97% on oxygen at 2 liters per minute. GENERAL: Mr. Kiran is an elderly male patient who is in mild respiratory distress currently. HEENT: Head is normocephalic and atraumatic. Eyes: Pupils are equal and reactive. Nose: No drainage. Throat: Moist mucosa. NECK: Supple. Midline trachea. No visible jugular venous distention. CHEST: Symmetrical with equal rise and fall of the chest with inspiration and expiration. Lung sounds with some coarse rhonchi bilaterally, diminished left lower lobe. CARDIOVASCULAR: The patient has a regular rate and rhythm. Normal S1 and S2. ABDOMEN: Soft, positive bowel sounds. No tenderness to palpation. He does have a PEG in place. GENITOURINARY: Deferred. EXTREMITIES: Lower extremities with no edema, 2+ pulses. Capillary refill is less than 2 seconds. NEUROLOGIC: The patient is pleasantly confused about certain questioning, but has no focal deficits and he responds accordingly. LABORATORY: Labs and films are discussed in the history of present illness. ASSESSMENT: 1. Multifocal pneumonia which is consistent with aspiration. 2. Chronic obstructive pulmonary disease with acute respiratory distress and possible exacerbation. 3. Altered mental status. 4. Esophageal cancer on chronic Coumadin therapy. 5. 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 6. Anemia. 7. Coumadin coagulopathy with a therapeutic INR secondary to a history of deep venous thrombosis. PLAN: At this point we will place the patient on broad spectrum antibiotics and watch for culture results. His history is consistent with a possible aspiration but cannot rule out other potential types of pneumonia, therefore we are covering broad spectrum. His altered mental status is improved since his fever has improved. Will resume his Warfarin for DVT treatment and resume his other medications once they are verified in the computer. I will recheck his chest x-ray and labs in the morning. #[id number] [facility]
[2017-11-19] MEDS ORDERED: VANCOMYCIN PER PHARMACY INJ SCH (22:30)
[2017-11-19] MEDS ORDERED: ACETAMINOPHEN LIQUID 160 MG/5 ML UD GT PRN (22:44)
[2017-11-19] MEDS: KCL 20 MEQ/NS 1,000 ML IVS PRN (23:20)
[2017-11-19] MEDS: IV SET AND CAP CHANGE INJ INJ SCH (23:20)
[2017-11-19] MEDS: IPRATROPIUM/ALBUTEROL 3 ML VIAL NEB SCH (23:43)
[2017-11-20] MEDS: MEROPENEM 1 GM in SODIUM CHL 0.9% 50ML MIN-BAG+ 50 ML IVPB SCH ×3 (03:14→18:22)
[2017-11-20] MEDS: IPRATROPIUM/ALBUTEROL 3 ML VIAL NEB SCH ×5 (03:59→20:28)
[2017-11-20] MEDS: methylPREDNISolone SODIUM SUC 40 MG/ML VIAL IV SCH ×3 (05:54→21:41)
[2017-11-20] MEDS ORDERED: SODIUM CHL 0.9% 50ML MIN-BAG+ 50 ML IVPB ONE ×3 (07:16→23:57)
[2017-11-20] MEDS ORDERED: MEROPENEM 1 GM VIAL IVPB ONE ×3 (07:17→23:57)
--- NOTE | 2017-11-20 07:24 | RAD ---
EXAM DESCRIPTION: Chest,2 Views CLINICAL HISTORY: Pneumonia COMPARISON: Chest CT performed yesterday FINDINGS: A dual-lead cardiac pacemaker and left-sided Mediport device remain in place. The cardiomediastinal silhouette is unremarkable. Again seen is interstitial prominence in the left lung base, unchanged from yesterday's CT and possibly representing developing pneumonia. No new airspace consolidation or pleural effusion. There is no pneumothorax or acute fracture. IMPRESSION: Abnormal appearance of the left lung base as detailed above. Findings are stable from yesterday's CT and consistent with provided history of pneumonia. No new abnormality or other significant interval change. Electronically signed by: Arthur Sandy MD 11/20/2017 7:23 AM CDT
[2017-11-20] MEDS ORDERED: SODIUM CHLORIDE 0.9% 250ML 250 ML ONE ×2 (09:41→20:32)
[2017-11-20] MEDS ORDERED: VANCOMYCIN HCL INJ 1,000 MG VIAL IVPB ONE ×2 (09:41→20:33)
[2017-11-20] MEDS ORDERED: VANCOMYCIN HCL INJ 1,000 MG in SODIUM CHLORIDE 0.9% 250ML 250 ML IVPB SCH ×2 (10:00→22:00)
[2017-11-20] MEDS ORDERED: CITALOPRAM HYDROBROMIDE 10 MG PO SCH (11:00)
[2017-11-20] MEDS ORDERED: WARFARIN SODIUM 2 MG TAB PO SCH (11:00)
[2017-11-20] MEDS ORDERED: NON-FORMULARY MEDICATION 1 EA MIS (Loratadine [Claritin] 10 MG) PO SCH (11:00)
[2017-11-20] MEDS ORDERED: LIDOCAINE 5% TD SCH (11:00)
[2017-11-20] MEDS ORDERED: LORATADINE 10 MG TAB PO ONE (11:07)
[2017-11-20] MEDS ORDERED: CITALOPRAM HBR 20 MG TAB ONE (11:07)
[2017-11-20] MEDS: TAMSULOSIN 0.4 MG CAP PO SCH (11:09)
[2017-11-20] MEDS: AMIODARONE HCL 200 MG TAB PO SCH (11:10)
--- NOTE | 2017-11-20 11:11 | PN ---
SUPERVISING PHYSICIAN: Vicky Sifuentes MD DATE: 11/20/17 SUBJECTIVE: The patient feels better than he did when he came in. His shortness of breath is a little bit improved. He definitely does not have any altered mental status this morning. OBJECTIVE: VITAL SIGNS: Blood pressure 93/61. Heart rate 80. Respiratory rate 18. Temperature 97.1. Oxygen saturation 97%. GENERAL: Mr. Kiran is a 72-year-old male in no active distress currently. NEUROLOGIC: Alert and oriented. LUNGS: Some mild coarse sounds. No active wheezing. Left lower base is pretty diminished. CARDIOVASCULAR: Regular rate and rhythm. Normal S1, S2. ABDOMEN: Soft. Positive bowel sounds. PEG in place. LABORATORY: White count 5.9, hemoglobin 11.0, hematocrit 33.6, platelet count 182. INR 2.04. Chemistry is unremarkable except for elevated glucose of 216. Chest x-ray this morning shows the left lower lobe consolidation. ASSESSMENT: 1. Left lower lobe pneumonia, which is possible aspiration. 2. Chronic obstructive pulmonary disease with acute exacerbation. 3. Altered mental status. 4. Esophageal cancer on chemotherapy. 5. 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 6. Anemia. 7. Coumadin coagulopathy with a therapeutic INR secondary to a history of deep venous thrombosis. PLAN: We will continue current antibiotics at this time. Continue to look for the culture results as they are not resulted as of yet. Clinically, the patient is improved, so we will continue all therapies and I will resume his home medications at this time. Recheck labs as well as chest x-ray tomorrow. His blood pressure is consistent with his normal values. Will resume his home medications. #[id number] [facility]
[2017-11-20] MEDS: KCL 20 MEQ/NS 1,000 ML IVS PRN (14:29)
[2017-11-21] MEDS: IPRATROPIUM/ALBUTEROL 3 ML VIAL NEB SCH ×6 (00:48→20:00)
[2017-11-21] MEDS: MEROPENEM 1 GM in SODIUM CHL 0.9% 50ML MIN-BAG+ 50 ML IVPB SCH ×3 (03:34→20:18)
[2017-11-21] MEDS: KCL 20 MEQ/NS 1,000 ML IVS PRN (05:23)
[2017-11-21] MEDS: methylPREDNISolone SODIUM SUC 40 MG/ML VIAL IV SCH ×3 (06:39→22:16)
--- NOTE | 2017-11-21 06:51 | RAD ---
PROCEDURE: XR CHEST 1 VIEW HISTORY: pneumonia COMPARISON: 11/20/2017 TECHNIQUE: Single projection of the chest was done. FINDINGS: There is stable position of the left-sided central line and the right-sided pacemaker wires. Persistent blunting of the left CP angle is again noted suspicious for tiny left-sided pleural effusion/pleural thickening . There are no discrete airspace infiltrates or pneumothoraces The cardiomediastinal silhouette is stable. IMPRESSION: Persistent blunting of the left CP angle is again noted suspicious for tiny left-sided pleural effusion/pleural thickening . Electronically signed by: Lam Rico MD 11/21/2017 6:50 AM CDT Workstation: [employer]
[2017-11-21] MEDS ORDERED: NON-FORMULARY MEDICATION 1 EA MIS GT SCH (09:00)
[2017-11-21] MEDS ORDERED: VANCOMYCIN HCL INJ 1,000 MG VIAL IVPB ONE ×2 (09:59→20:10)
[2017-11-21] MEDS ORDERED: SODIUM CHLORIDE 0.9% 250ML 250 ML ONE ×2 (09:59→20:09)
[2017-11-21] MEDS ORDERED: VANCOMYCIN HCL INJ 500 MG VIAL ONE ×2 (09:59→20:09)
[2017-11-21] MEDS: VANCOMYCIN HCL INJ 1,000 MG, VANCOMYCIN HCL INJ 250 MG in SODIUM CHLORIDE 0.9% 250ML 25... IVPB SCH ×2 (10:07→22:17)
[2017-11-21] MEDS: CITALOPRAM HBR 20 MG TAB PO SCH (10:16)
[2017-11-21] MEDS: LORATADINE 10 MG TAB PO SCH (10:18)
[2017-11-21] MEDS: TAMSULOSIN 0.4 MG CAP PO SCH (10:18)
[2017-11-21] MEDS: LIDOCAINE 5% TD SCH (10:18)
[2017-11-21] MEDS: AMIODARONE HCL 200 MG TAB PO SCH (10:26)
[2017-11-21] MEDS ORDERED: POTASSIUM CHLORIDE 20 MEQ TAB PO ONE (11:49)
[2017-11-21] MEDS ORDERED: SODIUM CHL 0.9% 50ML MIN-BAG+ 50 ML IVPB ONE ×2 (12:07→20:09)
[2017-11-21] MEDS ORDERED: MEROPENEM 1 GM VIAL IVPB ONE ×2 (12:08→20:10)
[2017-11-21] MEDS: WARFARIN SODIUM 2 MG TAB PO SCH (12:21)
[2017-11-21] MEDS ORDERED: DEXAMETHASONE LEFT_EYE SCH (13:00)
[2017-11-21] MEDS ORDERED: NEOMYCIN LEFT_EYE SCH (13:00)
[2017-11-21] MEDS ORDERED: [UNRECOGNIZED DRUG - OTHER] LEFT_EYE SCH (13:00)
[2017-11-21] MEDS ORDERED: POLYMYXIN B LEFT_EYE SCH (13:00)
--- NOTE | 2017-11-21 13:39 | PN ---
SUPERVISING PHYSICIAN: Vicky Sifuentes MD DATE: 11/21/17 SUBJECTIVE: The patient is sitting up on the side of the bed. He has complaints of some coughing, but minimal shortness of breath and that is only with exertion. He does have a productive cough. He denies chest pain, nausea, vomiting, diarrhea or constipation. OBJECTIVE: VITAL SIGNS: Afebrile. Heart rate 99. Blood pressure 92/61. Respiratory rate 20. O2 saturation 94% on 2 liters nasal cannula. RESPIRATORY: Diminished breath sounds throughout with some scattered rhonchi. There is no wheezing. CARDIAC: Regular rate and rhythm. GASTROINTESTINAL: Abdomen is soft, nondistended, nontender. Bowel sounds are positive. NEUROLOGIC: Awake, alert and oriented times three. LABORATORY: Electrolytes are basically within normal limits with the exception of his potassium is low at 3.3 and his calcium is low at 8.2. Blood sugars have run between 157 and 303, but he is on steroid therapy. WBCs 8.5. His hemoglobin has dropped almost 2 grams overnight. There may be some hemodilution. Today, it is 9.2. Hematocrit is 27.4. He does have a left shift on differential. Sputum culture is pending. Blood cultures show no growth after 24 hours. Chest x-ray shows persistent blunting of the left CP angle again noted, suspicious for tiny left sided pleural effusion/pleural thickening. All other labs and films have been reviewed via the EMR. ASSESSMENT: 1. Left lower lobe pneumonia, cannot rule out aspiration. 2. Chronic obstructive pulmonary disease with acute exacerbation. 3. Altered mental status, improved. 4. Esophageal cancer on chemotherapy. 5. Immunocompromised state secondary to chronic chemotherapy. 6. Anemia. 7. Coumadin coagulopathy with a therapeutic INR secondary to a history of deep venous thrombosis. PLAN: We will continue present supportive care. I have tapered his IV steroids and those will be discontinued this evening and we will start on p.o. steroids tomorrow. I have given him some potassium supplementation. We will continue to monitor his cultures, but continue on his meropenem and vancomycin until those sensitivities become available. I will recheck his labs. He is taking p.o. fluids now and I will discontinue his IV fluids. We will watch his hemoglobin and hematocrit closely overnight. We will continue to monitor the patient closely and follow as needed. We will also continue with good pulmonary hygiene. Dr. Sifuentes is the collaborating physician and available for consultation. #[id number] [facility]
[2017-11-21] MEDS: [UNRECOGNIZED DRUG - OTHER] TOP SCH ×3 (14:44→20:52)
[2017-11-22] MEDS ORDERED: POLYETHYLENE GLYCOL 3350 17 GM PCKT PO PRN (02:29)
[2017-11-22] MEDS ORDERED: SODIUM CHL 0.9% 50ML MIN-BAG+ 50 ML IVPB ONE ×4 (02:40→19:20)
[2017-11-22] MEDS ORDERED: MEROPENEM 1 GM VIAL IVPB ONE ×4 (02:41→19:20)
[2017-11-22] MEDS: MEROPENEM 1 GM in SODIUM CHL 0.9% 50ML MIN-BAG+ 50 ML IVPB SCH ×3 (02:43→18:32)
[2017-11-22] MEDS: IPRATROPIUM/ALBUTEROL 3 ML VIAL NEB SCH ×6 (03:48→20:04)
[2017-11-22] MEDS ORDERED: VANCOMYCIN HCL INJ 500 MG VIAL ONE ×2 (08:30→19:20)
[2017-11-22] MEDS ORDERED: SODIUM CHLORIDE 0.9% 250ML 250 ML ONE ×2 (08:30→19:20)
[2017-11-22] MEDS ORDERED: VANCOMYCIN HCL INJ 1,000 MG VIAL IVPB ONE ×2 (08:31→19:20)
[2017-11-22] MEDS: LORATADINE 10 MG TAB PO SCH (08:36)
[2017-11-22] MEDS: TAMSULOSIN 0.4 MG CAP PO SCH (08:36)
[2017-11-22] MEDS: CITALOPRAM HBR 20 MG TAB PO SCH (08:36)
[2017-11-22] MEDS: AMIODARONE HCL 200 MG TAB PO SCH (08:36)
[2017-11-22] MEDS: LIDOCAINE 5% TD SCH (08:37)
[2017-11-22] MEDS: predniSONE 20 MG TAB PO SCH (08:37)
[2017-11-22] MEDS: [UNRECOGNIZED DRUG - OTHER] TOP SCH ×4 (08:37→20:40)
[2017-11-22] MEDS ORDERED: MAGNESIUM HYDROXIDE 30 ML UD PO ONE ×2 (10:07→12:36)
[2017-11-22] MEDS: VANCOMYCIN HCL INJ 1,000 MG, VANCOMYCIN HCL INJ 250 MG in SODIUM CHLORIDE 0.9% 250ML 25... IVPB SCH ×2 (10:32→22:03)
[2017-11-22] MEDS: WARFARIN SODIUM 2 MG TAB PO SCH (12:26)
[2017-11-22] MEDS ORDERED: BISACODYL SUPPOSITORY 10 MG PR ONE (12:36)
--- NOTE | 2017-11-22 13:11 | PN ---
SUPERVISING PHYSICIAN: Vicky Sifuentes MD DATE: 11/22/17 SUBJECTIVE: The patient is sitting up on the side of the bed. He continues to improve daily, but he still has some coughing and some mild shortness of breath. He has no complaints of chest pain, nausea or vomiting. He has complaint of constipation. Earlier, he received some Milk of Magnesia, but he would like another dose of it. OBJECTIVE: VITAL SIGNS: Afebrile. Heart rate 97. Blood pressure 103/65. Respiratory rate 18. O2 saturation 93%. RESPIRATORY: Diminished breath sounds throughout. There is no wheezing noted. CARDIAC: Regular rate and rhythm. GASTROINTESTINAL: Abdomen is soft, nondistended, nontender. Bowel sounds are positive. EXTREMITIES: No cyanosis, clubbing or edema. NEUROLOGIC: Awake, alert and oriented times three. LABORATORY: WBCs 8, hemoglobin 9.3, hematocrit 28.2. INR 2.46. Electrolytes are basically within normal limits with exception of BUN slightly high at 20. Sputum culture is pending. Preliminary blood cultures show no growth after 48 hours. All other labs and films have been reviewed via the EMR. ASSESSMENT: 1. Left lower lobe pneumonia, cannot rule out aspiration. 2. Chronic obstructive pulmonary disease with acute exacerbation. 3. Altered mental status, improved. 4. Esophageal cancer on chemotherapy. 5. Immunocompromised state secondary to chronic chemotherapy. 6. Anemia. 7. Coumadin coagulopathy with a therapeutic INR secondary to a history of deep venous thrombosis. PLAN: We will continue present supportive care. I have ordered an additional dose of Milk of Magnesia as well as Dulcolax suppository for his constipation. I repeated his lab and chest x-ray tomorrow and we will order physical therapy for discharge planning and safety. Hemoglobin and hematocrit were stable today. We will also monitor his sputum cultures to drive antibiotic therapy. I have continued to encourage good pulmonary hygiene. Hopefully he can be discharged in the next day or two. #[id number] [facility]
[2017-11-22] MEDS: IV SET AND CAP CHANGE INJ INJ SCH (22:22)
[2017-11-23] MEDS: IPRATROPIUM/ALBUTEROL 3 ML VIAL NEB SCH ×4 (00:40→12:55)
[2017-11-23] MEDS: MEROPENEM 1 GM in SODIUM CHL 0.9% 50ML MIN-BAG+ 50 ML IVPB SCH ×2 (03:23→11:52)
--- NOTE | 2017-11-23 06:41 | RAD ---
Chest 2 view on 11/23/2017 CLINICAL INDICATION: Pneumonia COMPARISON: 11/21/2017 FINDINGS: 2-lead right subclavian pacemaker is noted in place. Apparent epicardial wires are noted overlying the left heart. Left subclavian Port-A-Cath tip is at the cavoatrial junction. Heart is within normal limits for size. There is mild bibasilar atelectasis or scarring. Lungs are otherwise clear. Cardiac, hilar and mediastinal contours are within normal limits. IMPRESSION: No significant change in the appearance of the chest. Electronically signed by: Randell Reyes 11/23/2017 6:40 AM CDT
[2017-11-23] MEDS: AMIODARONE HCL 200 MG TAB PO SCH (09:09)
[2017-11-23] MEDS: CITALOPRAM HBR 20 MG TAB PO SCH (09:09)
[2017-11-23] MEDS: predniSONE 20 MG TAB PO SCH (09:09)
[2017-11-23] MEDS: LORATADINE 10 MG TAB PO SCH (09:09)
[2017-11-23] MEDS: TAMSULOSIN 0.4 MG CAP PO SCH (09:09)
[2017-11-23] MEDS: [UNRECOGNIZED DRUG - OTHER] TOP SCH ×2 (09:10→12:45)
[2017-11-23] MEDS: LIDOCAINE 5% TD SCH (09:10)
[2017-11-23] MEDS: SODIUM CHLORIDE 0.9% (FLUSH) 10 ML SYG IV PRN ×2 (09:11→12:43)
[2017-11-23] MEDS ORDERED: SODIUM CHL 0.9% 50ML MIN-BAG+ 0 ML IVPB ONE (10:27)
[2017-11-23] MEDS ORDERED: SODIUM CHLORIDE 0.9% 250ML 250 ML ONE (10:27)
[2017-11-23] MEDS ORDERED: VANCOMYCIN HCL INJ 500 MG VIAL ONE (10:27)
[2017-11-23] MEDS ORDERED: VANCOMYCIN HCL INJ 1,000 MG VIAL IVPB ONE (10:27)
[2017-11-23] MEDS ORDERED: MEROPENEM 1 GM VIAL IVPB ONE (10:28)
[2017-11-23] MEDS: VANCOMYCIN HCL INJ 1,000 MG, VANCOMYCIN HCL INJ 250 MG in SODIUM CHLORIDE 0.9% 250ML 25... IVPB SCH (10:36)
[2017-11-23] MEDS ORDERED: AMPICILLIN & SULBACTAM SODIUM 1.5 GM VIAL ONE (11:50)
[2017-11-23] MEDS ORDERED: SODIUM CHL 0.9% 50ML MIN-BAG+ 50 ML IVPB ONE (11:50)
[2017-11-23] MEDS ORDERED: AMPICILLIN & SULBACTAM SODIUM 1.5 GM in SODIUM CHL 0.9% 50ML MIN-BAG+ 50 ML IVPB SCH (12:00)
[2017-11-23] MEDS: WARFARIN SODIUM 2 MG TAB PO SCH (12:12)
[2017-11-23 14:26] VITALS: BP 105/70; TEMP 97.8; O2SAT 95
--- NOTE | 2017-11-28 09:17 | DS ---
SUPERVISING PHYSICIAN: Vicky Sifuentes MD ADMISSION DIAGNOSIS: 1. Multifocal pneumonia with questionable aspiration. 2. Chronic obstructive pulmonary disease with acute respiratory distress and possible exacerbation. 3. Altered mental status. 4. Esophageal cancer on chronic Coumadin therapy. 5. 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 6. Anemia. 7. Coumadin coagulopathy with a therapeutic INR secondary to a history of deep venous thrombosis. DISCHARGE DIAGNOSIS: 1. Chronic obstructive pulmonary disease with acute exacerbation with left lower lobe pneumonia with concerns for aspiration, more likely community acquired, showing good clinical improvement with parenteral antibiotics. 2. Altered mental status, back to baseline mental capacity. 3. Esophageal cancer on chemotherapy, chronic. 4. Immunocompromised state, chronic, secondary to ongoing chemotherapy. 5. Anemia with normocytic/normochromic presentation, likely secondary to chronic illness secondary to ongoing chemotherapy and cancer treatment, stable. 6. Coumadin coagulopathy with a therapeutic INR secondary to a history of deep venous thrombosis. REASON FOR HOSPITALIZATION: Mr. Kiran is a 72-year-old male patient who came to the Emergency Room on 11/19/17 after a sudden episode of confusion. He was in [place] earlier that day and had an EGD with Dr. Noel on the morning of admission. The patient has a history of esophageal cancer and this was a routine study that he was having done. He was released from the hospital around 1:00 PM, but over the next 4 to 5 hours after discharge he began to have altered mental status. He was brought to the Emergency Room for evaluation and upon arrival was noted to have a temperature of 104.6. Blood pressures were in the 90s systolically. His workup included labs as well as CT scan of the chest and the head due to the altered mental status. His CT scan of the brain without contrast did not show any acute findings. CT scan of the chest showed left lower lobe ground glass opacification as well as right upper and middle lobe consolidation, all concerning for pneumonia. Also, it did not rule out possible infiltrative neoplasm that would need followup on whether or not the infiltrate resolved. White count was normal. The patient is on chemotherapy for esophageal cancer and actually had a dose the Sunday previous to admission. While in the Emergency Room he was given IV fluids. His blood pressure went anywhere from the 80s to 90s systolically. The ER physician felt that he was septic, however, the family states his blood pressure is always on the low side and then when he gets home, his blood pressure readings are in the 80s and 90s typically. The patient's mental status improved throughout the admission and his fever actually improved as well. He was given Rocephin, Merrem and vancomycin. He was admitted for further evaluation and treatment with acute confusion and delirium with concerns for developing community acquired pneumonia. LABORATORY: White count on admission 7,700. Discharge was 8,900. There was a left shift noted and continued through admission. Hemoglobin and hematocrit were fairly stable and initially were 11.3 and 33.7 respectively. On discharge , hemoglobin was 9.4, hematocrit 28.7, platelet count within normal limits at 197,000 on discharge. PT initially was 22.3 with INR 2.5. On date of discharge , INR was 3.0. Chemistries on admission showed electrolytes with a low sodium of 134, potassium 3.5, BUN 17, creatinine 0.83. Glucose 165, lactic acid 1.4, calcium 8.5. Liver functions all within normal limits. Troponin less than 0.06. Amylase and lipase were both within normal limits. Additional chemistries through his treatment showed he normalized his electrolytes prior to discharge with potassium 3.7, BUN 17, creatinine 0.67, magnesium 2.3, liver functions remaining within normal limits. Calcium 8.4. Urinalysis on admission initially showed 100 glucose, moderate amount of blood. Microscopic showed 20 to 30 RBCs, rare bacteria, 0 to 1 epithelials, 0 to 1 WBCs. Vancomycin trough was followed with it being therapeutic and on morning of discharge, vancomycin was 16.7. MICROBIOLOGY: Final sputum culture results showed Klebsiella aeruginosa that was fairly sensitive, being sensitive to Levaquin with the patient having been on meropenem through hospitalization. Please see that report for full details. He had two sets of blood cultures that were negative after 5 days. RADIOLOGY: In the Emergency Room, he had a head CT without contrast and per radiologic interpretation, there were no acute intracranial pathologic processes noted. Chest CT per radiologic interpretation made note that there was a large confluent reticulation and ground glass opacification of the left lower lobe with patchy areas of reticulation and ground glass interstitial opacities of the right upper and middle lobes concerning for multifocal pneumonia. Also of note was emphysema and nonspecific thickening of the esophagus at the level of the esophageal junction measuring up to 13 mm in thickness. DISCHARGE PHYSICAL EXAMINATION: VITAL SIGNS: Temperature 97.8. Pulse 76. Blood pressure 105/70. Respiratory rate 16. Saturation 95% on room air. Weight 74.2 kg. GENERAL: The patient was alert, in no acute distress. CHEST: Lung sounds were fairly clear throughout. There was no wheezing or rales noted. Slightly diminished towards the bases. CARDIOVASCULAR: Regular rate and rhythm. ABDOMEN: Soft, nontender. Positive bowel sounds. EXTREMITIES: No cyanosis, clubbing or edema. NEUROLOGIC: Alert and oriented times 3. HOSPITAL COURSE: Mr. Kiran was admitted on 11/19/17 with concerns for sepsis secondary to bilateral pneumonia. Given he has esophageal cancer for which he is receiving chemotherapy and is in an immunocompromised state, it was felt that the patient more likely was septic. At that point in the Emergency Room, he was treated with antibiotics and fluids. In the Emergency Room, initially his mentation was significantly changed from his baseline, but returned shortly after being treated with antibiotics and fluids. He was admitted in stable condition and continued on antibiotics with Merrem, Rocephin and vancomycin. He continues to show good clinical improvement and when final culture results were back, antibiotic therapy was targeted according to those results and the patient was transitioned to Levaquin on which he could be discharged home. The patient showed good clinical response and was in stable condition prior to discharge. Therefore, it was felt that he could continue with outpatient management on oral medications. PLAN: Mr. Minor was discharged on 11/23/17 with instructions to followup with his primary care provider, Dr. Hameed, in one to two weeks or earlier if needed. He was to resume his home medications as prior to hospitalization. Diet at discharge was diabetic diet. Activities were as per physical therapy and to increase as tolerated. New medications at discharge included Levaquin 750 mg daily for 10 days. He was instructed to return to the hospital or call Dr. Hameed should he have any concerning symptoms or further worsening of his condition. Condition at discharge was stable and improved. #[id number] [facility]
== END 2017-11-23 14:30 | disposition home or self-care (01) | DRG 871 ==
LOC: ER 16:37 → OBSVTOIN 21:42 → MS 21:42
PROVIDERS: ADMIT Nurse Practitioner; ATTEND Nurse Practitioner Family
DX: A41.9 Sepsis, unspecified organism (principal); J18.9 Pneumonia, unspecified organism; J44.0 Chronic obstructive pulmonary disease with (acute) lower respiratory infection; J44.1 Chronic obstructive pulmonary disease with (acute) exacerbation; C15.9 Malignant neoplasm of esophagus, unspecified; F05 Delirium due to known physiological condition; I95.9 Hypotension, unspecified; D64.81 Anemia due to antineoplastic chemotherapy; T45.1X5A Adverse effect of antineoplastic and immunosuppressive drugs, initial encounter; B96.1 Klebsiella pneumoniae [K. pneumoniae] as the cause of diseases classified elsewhere; E11.9 Type 2 diabetes mellitus without complications; I10 Essential (primary) hypertension; M06.9 Rheumatoid arthritis, unspecified; K59.00 Constipation, unspecified; I48.91 Unspecified atrial fibrillation; Y92.9 Unspecified place or not applicable; Z86.718 Personal history of other venous thrombosis and embolism; Z86.73 Personal history of transient ischemic attack (TIA), and cerebral infarction without residual deficits; Z79.01 Long term (current) use of anticoagulants; Z95.0 Presence of cardiac pacemaker; Z87.891 Personal history of nicotine dependence; Z79.899 Other long term (current) drug therapy

== ENCOUNTER → 2017-11-27 | Outpatient (CLI) | payer MEDICARE, OTHER | LOC: BFHH 15:47 | PROVIDERS: ATTEND Family Medicine | DX: Z79.01 Long term (current) use of anticoagulants (principal) ==

== ENCOUNTER → 2017-12-03 | Outpatient (CLI) | payer MEDICARE, OTHER | LOC: BFHH 15:43 | PROVIDERS: ATTEND Family Medicine | DX: Z79.01 Long term (current) use of anticoagulants (principal) ==

== ENCOUNTER 2018-01-13 16:01 | Emergency (ER) | payer MEDICARE, OTHER ==
[2018-01-13] MEDS ORDERED: ONDANSETRON ODT 8 MG TAB SL ONE (16:13)
[2018-01-13] MEDS ORDERED: ACETAMINOPHEN 325 MG TAB GT ONE (16:13)
[2018-01-13] MEDS ORDERED: MORPHINE SULFATE INJ 10 MG/ML VIAL IV ONE (16:14)
[2018-01-13] MEDS ORDERED: CLINDAMYCIN IV 600MG 600 MG in PREMIX BAG 1 BAG IVPB ONE (16:51)
[2018-01-13] MEDS ORDERED: levoFLOXacin 500MG IV 500 MG in PREMIX BAG 1 BAG IVPB ONE (16:51)
[2018-01-13] MEDS ORDERED: CLINDAMYCIN IV 600MG 50 ML IVPB ONE (16:59)
[2018-01-13] MEDS ORDERED: levoFLOXacin 500MG IV 100 ML IVPB ONE (17:00)
[2018-01-13] MEDS ORDERED: SODIUM CHLORIDE 0.9% 1000ML 1,000 ML IVS ONE (17:05)
--- NOTE | 2018-01-13 17:25 | RAD ---
EXAM DESCRIPTION: Abdomen Series CLINICAL HISTORY: 72 years Male ,vomiting, fever, esoph cancer COMPARISON: 07/11/2017 TECHNIQUE: Frontal view chest x-ray and two views of the abdomen. FINDINGS: The cardiomediastinal silhouette appears unremarkable. No consolidating infiltrates or pleural effusions. Pacemaker leads again noted. Small amount of atelectasis in the lung bases bilaterally. Pedicle screws and posterior fixation rods at L5-S1. IMPRESSION: No acute plain film abnormality is identified. Electronically signed by: Barbie Shahid MD 01/13/2018 5:24 PM CDT
--- NOTE | 2018-01-13 19:09 | ED.PDOC ---
History of Present Illness - General Chief Complaint: General Stated Complaint: short of breath, fever, chills Time Seen by Provider: 01/13/18 16:04 Source: patient Exam Limitations: no limitations - History of Present Illness Initial Comments: the patient is a 72-year-old male presenting to emergency room secondary to one to 3 hours of fever and chills with some mild associated weakness and a mild cough. He does have known esophageal cancer and is apparently about to go on hospice for it. He has had multiple recurrent episodes of aspiration pneumonia in the past. He is not hypoxic. He is not currently in distress. No obvious evidence of any sepsis. He gets most of his intake through G-tube. He did have a couple of episodes of vomiting this morning after trying to take some oral intake instead. He does believe that he possibly inhaled a little bit of that material. No other new symptoms. He is pleasant and cooperated. He is alert and oriented. Timing/Duration: 1-3 hours Severity: moderate Improving Factors: nothing Worsening Factors: nothing Associated Symptoms: cough, fever/chills, malaise, weakness Allergies/Adverse Reactions: Allergies NO KNOWN ALLERGY Allergy (Verified 11/20/17 08:37) Home Medications: Ambulatory Orders Amiodarone HCl 100 mg PO DAILY 08/09/16 Lidocaine Patch 5 % TD DAILY 08/09/16 Tamsulosin [Flomax] 0.4 mg PO DAILY 08/09/16 Ipratropium/Albuterol [Duoneb] 3 ml INH RTQID 08/11/16 Citalopram Hydrobromide [Citalopram] 10 mg PO DAILY 11/19/17 Loratadine [Claritin] 10 mg PO DAILY 11/19/17 Warfarin Sodium 2 mg PO DAILY 11/19/17 Sqkyflxo-Ausnjv-Ompkulog [Neomycin/Polymyxin/Dexame 3.5-86215-4.1] 1 drop LEFT_ EYE QID 11/21/17 Levofloxacin [Levaquin] 750 mg PO DAILY #10 tablet 11/23/17 Clindamycin HCl 300 mg PO Q8H #20 cap 01/13/18 levoFLOXacin [Levaquin] 500 mg PO DAILY #7 tab 01/13/18 Review of Systems - Review of Systems Constitutional: States: fever, malaise, weakness - generalized EENTM: States: blurred vision - chronic out of the right eye so he looks out of the left eye Respiratory: States: cough - mild Cardiology: States: no symptoms reported Gastrointestinal/Abdominal: States: no symptoms reported Genitourinary: States: no symptoms reported Musculoskeletal: States: no symptoms reported Skin: States: no symptoms reported Neurological: States: no symptoms reported Endocrine: States: no symptoms reported All other Systems: No Change from Baseline Past Medical History (General) - Patient Medical History Hx Seizures: No Hx Stroke: Yes - 2014 right sided weakness Hx Dementia: No Hx Asthma: Yes Hx of COPD: Yes Hx Cardiac Disorders: Yes - Pacemaker Hx Congestive Heart Failure: No Hx Pacemaker: Yes Hx Hypertension: No Hx Thyroid Disease: No Hx Diabetes: Yes - type 2 Hx Gastroesophageal Reflux: No Hx Renal Disease: No Hx Cancer: Yes - esophageal cancer-going on hospice tomorrow. Hx of HIV: No Hx Hepatitis C: No Hx MRSA: No - Vaccination History Hx Tetanus, Diphtheria Vaccination: Yes Hx Influenza Vaccination: No Hx Pneumococcal Vaccination: No - Social History Hx Tobacco Use: Yes - quit 10yrs ago Hx Chewing Tobacco Use: No Hx Alcohol Use: No Hx Substance Use: No Hx Substance Use Treatment: No Hx Depression: No Hx Physical Abuse: No Hx Emotional Abuse: No Hx Suspected Abuse: No - Triage Comment ED Triage Comment: pt assisted into gown. cool wash cloth applied to forehead. Family Medical History - Family History Mother Family History: Unknown Living Status: Brother Family History: Unknown Hx Family Cancer: Yes Physical Exam - Physical Exam General Appearance: Alert, Comfortable, No apparent distress Eye Exam: right other - poor vision out of the right eye which is chronic, left normal Ears, Nose, Throat: hearing grossly normal, normal ENT inspection, normal pharynx Neck: full range of motion, supple Respiratory: lungs clear, normal breath sounds, no respiratory distress, no accessory muscle use Cardiovascular/Chest: normal peripheral pulses, no edema, other - regular rate to mildly tachycardic Peripheral Pulses: radial,right: 2+, radial,left: 2+ Gastrointestinal/Abdominal: non tender - G-tube is in place, soft Rectal Exam: deferred Back Exam: normal inspection, no CVA tenderness Extremity: normal range of motion, non-tender, normal inspection, normal capillary refill, pedal edema - trace only Neurologic: patients transporter II-XII nml as tested - chronic vision changes as stated above, alert, normal mood/affect, oriented x 3 Skin Exam: normal color Comments: Vital Signs - 24 hr 01/13/18 01/13/18 16:05 17:01 Temperature 101.4 F H Pulse Rate [ 105 H 88 Left Brachial] Respiratory 22 22 Rate Blood Pressure 113/68 103/63 [Left Arm] O2 Sat by Pulse 95 98 Oximetry Progress - Progress Progress: 01/13/18 19:11 the patient is a 72-year-old male presenting to the emergency room secondary to fever and chills of a short duration. Most likely source given the workup is a mild aspiration from his vomiting episode this morning. He needs to primarily only take intake through his G-tube with the exception of some water. He is not hypoxic. Vital signs have remained stable. The patient is going to be covered with clindamycin and Levaquin for 7 days. He was given a liter of fluids here. He can use liquid Tylenol or Motrin down the G-tube to control any fevers. He does need to keep his scheduled follow-up for his hospice intake tomorrow. ER warnings were given for any acute worsening. The patient and his family have agreed to the plan. He should keep follow-up with his primary care doctor later in the week. - Results/Orders Results/Orders: chest x-ray shows no definitive new pathology. 01/13/18 16:31 BLOOD CULTURE Stat Laboratory Results - last 24 hr 01/13/18 01/13/18 01/13/18 16:31 16:31 16:31 WBC 10.4 RBC 3.78 L Hgb 11.6 L Hct 35.3 L MCV 93.5 MCH 30.6 MCHC 32.8 L RDW 14.9 H Plt Count 175 MPV 8.1 Absolute Neuts (auto) 8.00 H Absolute Lymphs (auto) 1.00 Absolute Monos (auto) 1.20 H Absolute Eos (auto) 0.00 Absolute Basos (auto) 0.00 Neutrophils % 77.6 Lymphocytes % 10.0 L Monocytes % 11.6 H Eosinophils % 0.3 L Basophils % 0.5 PT 10.6 INR 1.06 PTT (SP) 28.9 Sodium 135 Potassium 3.3 L Chloride 103 Carbon Dioxide 24 Anion Gap 11.3 L BUN 16 Creatinine 0.81 BUN/Creatinine Ratio 19.8 Random Glucose 179 H Serum Osmolality 275.8 Lactic Acid Calcium 8.9 Total Bilirubin 0.4 AST 27 ALT 19 Alkaline Phosphatase 91 Serum Total Protein 6.5 Albumin 3.3 Globulin 3.2 Albumin/Globulin Ratio 1.0 L Amylase 33 Lipase 23 Urine Color Urine Appearance Urine pH Ur Specific [place] Urine Protein Urine Glucose (UA) Urine Ketones Urine Blood Urine Nitrite Urine Bilirubin Urine Urobilinogen Ur Leukocyte Esterase Urine RBC Urine WBC Ur Epithelial Cells Urine Bacteria 01/13/18 01/13/18 16:31 18:32 WBC RBC Hgb Hct MCV MCH MCHC RDW Plt Count MPV Absolute Neuts (auto) Absolute Lymphs (auto) Absolute Monos (auto) Absolute Eos (auto) Absolute Basos (auto) Neutrophils % Lymphocytes % Monocytes % Eosinophils % Basophils % PT INR PTT (SP) Sodium Potassium Chloride Carbon Dioxide Anion Gap BUN Creatinine BUN/Creatinine Ratio Random Glucose Serum Osmolality Lactic Acid 2.4 H* Calcium Total Bilirubin AST ALT Alkaline Phosphatase Serum Total Protein Albumin Globulin Albumin/Globulin Ratio Amylase Lipase Urine Color Yellow Urine Appearance Clear Urine pH 5.0 Ur Specific [place] 1.010 Urine Protein Negative Urine Glucose (UA) Negative Urine Ketones Negative Urine Blood Negative Urine Nitrite Negative Urine Bilirubin Negative Urine Urobilinogen 0.2 Ur Leukocyte Esterase Negative Urine RBC 0-1 Urine WBC 3-5 H Ur Epithelial Cells 0-1 Urine Bacteria Rare Departure - Departure Clinical Impression: Aspiration into airway Qualifiers: Encounter type: initial encounter Qualified Code(s): T17.908A - Unspecified foreign body in respiratory tract, part unspecified causing other injury, initial encounter Disposition: Discharge to Home or Self Care Condition: Fair Departure Forms: ED Discharge - Pt. Copy, Patient Portal Self Enrollment Diet: other - G-tube intake only with the exception of some water Activity: increase activity as tolerated Referrals: Krish Hameed MD [Primary Care Provider] - 1-5 Days Prescriptions: Clindamycin HCl 300 mg PO Q8H #20 cap levoFLOXacin [Levaquin] 500 mg PO DAILY #7 tab Home Medications: Ambulatory Orders Amiodarone HCl 100 mg PO DAILY 08/09/16 Lidocaine Patch 5 % TD DAILY 08/09/16 Tamsulosin [Flomax] 0.4 mg PO DAILY 08/09/16 Ipratropium/Albuterol [Duoneb] 3 ml INH RTQID 08/11/16 Citalopram Hydrobromide [Citalopram] 10 mg PO DAILY 11/19/17 Loratadine [Claritin] 10 mg PO DAILY 11/19/17 Warfarin Sodium 2 mg PO DAILY 11/19/17 Dogvkykl-Bbodhj-Bvugiron [Neomycin/Polymyxin/Dexame 3.5-14949-0.1] 1 drop LEFT_ EYE QID 11/21/17 Levofloxacin [Levaquin] 750 mg PO DAILY #10 tablet 11/23/17 Clindamycin HCl 300 mg PO Q8H #20 cap 01/13/18 levoFLOXacin [Levaquin] 500 mg PO DAILY #7 tab 01/13/18 Additional Instructions: the patient is a 72-year-old male presenting to the emergency room secondary to fever and chills of a short duration. Most likely source given the workup is a mild aspiration from his vomiting episode this morning. He needs to primarily only take intake through his G-tube with the exception of some water. He is not hypoxic. Vital signs have remained stable. The patient is going to be covered with clindamycin and Levaquin for 7 days. He was given a liter of fluids here. He can use liquid Tylenol or Motrin down the G-tube to control any fevers. He does need to keep his scheduled follow-up for his hospice intake tomorrow. ER warnings were given for any acute worsening. The patient and his family have agreed to the plan. He should keep follow-up with his primary care doctor later in the week. he should have his blood thinner level rechecked later this week.
[2018-01-13 19:42] VITALS: BP 98/78; TEMP 100.5; O2SAT 96
== END 2018-01-13 19:30 | disposition home or self-care (01) ==
LOC: ER 16:01
DX: T17.908A Unspecified foreign body in respiratory tract, part unspecified causing other injury, initial encounter (principal); R06.02 Shortness of breath; R11.10 Vomiting, unspecified; C15.9 Malignant neoplasm of esophagus, unspecified; J44.9 Chronic obstructive pulmonary disease, unspecified; E11.9 Type 2 diabetes mellitus without complications; I69.351 Hemiplegia and hemiparesis following cerebral infarction affecting right dominant side; Z87.891 Personal history of nicotine dependence; Z95.0 Presence of cardiac pacemaker; Z79.01 Long term (current) use of anticoagulants; Z79.899 Other long term (current) drug therapy
CPT/HCPCS: 36415; 74019; 80053; 81001; 82150; 83605; 83690; 85025; 85610; 85730; 87040; J1956; J2270; J3490; J7030

== ENCOUNTER → 2018-03-15 | Outpatient (CLI) | payer OTHER | LOC: BFHOS 10:01 | PROVIDERS: ATTEND Family Medicine | DX: I69.351 Hemiplegia and hemiparesis following cerebral infarction affecting right dominant side (principal) ==

== ENCOUNTER → 2018-04-08 | Outpatient (CLI) | payer OTHER | LOC: BFHOS 13:46 | PROVIDERS: ATTEND Family Medicine | DX: I48.91 Unspecified atrial fibrillation (principal) ==

== ENCOUNTER → 2018-05-13 | Outpatient (CLI) | payer OTHER | LOC: BFHOS 13:59 | PROVIDERS: ATTEND Family Medicine | DX: I48.91 Unspecified atrial fibrillation (principal) ==

== ENCOUNTER → 2018-07-22 | Outpatient (CLI) | payer MEDICARE, OTHER | LOC: BFHH 10:16 | PROVIDERS: ATTEND Family Medicine | DX: I48.91 Unspecified atrial fibrillation (principal) ==

== ENCOUNTER → 2018-09-18 | Outpatient (CLI) | payer OTHER | LOC: BFHOS 09:51 | PROVIDERS: ATTEND Family Medicine | DX: I48.91 Unspecified atrial fibrillation (principal) ==

== ENCOUNTER 2018-09-20 12:00 | Emergency (ER) | payer OTHER ==
[2018-09-20] MEDS ORDERED: MORPHINE SULFATE INJ 10 MG/ML VIAL IV ONE ×2 (12:35→15:00)
[2018-09-20] MEDS ORDERED: ONDANSETRON INJ 4 MG/2 ML VIAL IV ONE (12:35)
--- NOTE | 2018-09-20 12:39 | ED.PDOC ---
History of Present Illness - General Chief Complaint: Respiratory Problem Time Seen by Provider: 09/20/18 12:24 Source: patient, Vital Signs reviewed, family Exam Limitations: no limitations - History of Present Illness Initial Comments: 73 yo male hospice patient with esophageal cancer presents c/o acute onset of left sided pain from "my eye to my hip". No alleviating factors. Worse with coughing & some left arm movements. Timing/Duration: 1 hour Severity/Quality: severe Activities at Onset: rest Nitro Today/Relief: no nitro taken today Aspirin Treatment Today: no aspirin today Associated Symptoms: abdominal pain, shortness of breath, weakness Allergies/Adverse Reactions: Allergies NO KNOWN ALLERGY Allergy (Verified 11/20/17 08:37) Home Medications: Ambulatory Orders Amiodarone HCl 100 mg PO DAILY 08/09/16 Lidocaine Patch 5 % TD DAILY 08/09/16 Tamsulosin [Flomax] 0.4 mg PO DAILY 08/09/16 Ipratropium/Albuterol [Duoneb] 3 ml INH RTQID 08/11/16 Citalopram Hydrobromide [Citalopram] 10 mg PO DAILY 11/19/17 Loratadine [Claritin] 10 mg PO DAILY 11/19/17 Warfarin Sodium 2 mg PO DAILY 11/19/17 Oltvsdqb-Wjtxvd-Shrdxget [Neomycin/Polymyxin/Dexame 3.5-19499-1.1] 1 drop LEFT_EYE QID 11/21/17 Levofloxacin [Levaquin] 750 mg PO DAILY #10 tablet 11/23/17 Clindamycin HCl 300 mg PO Q8H #20 cap 01/13/18 levoFLOXacin [Levaquin] 500 mg PO DAILY #7 tab 01/13/18 Review of Systems - Review of Systems Constitutional: States: no symptoms reported EENTM: States: no symptoms reported Respiratory: States: see HPI Cardiology: States: see HPI Gastrointestinal/Abdominal: States: see HPI, vomiting Genitourinary: States: no symptoms reported Musculoskeletal: States: see HPI Skin: States: no symptoms reported Neurological: States: see HPI Hematologic/Lymphatic: States: easy bruising Past Medical History (General) - Patient Medical History Hx Seizures: No Hx Stroke: Yes - 2014 right sided weakness Hx Dementia: No Hx Asthma: Yes Hx of COPD: Yes Hx Cardiac Disorders: Yes - Pacemaker Hx Congestive Heart Failure: No Hx Pacemaker: Yes Hx Hypertension: No Hx Thyroid Disease: No Hx Diabetes: Yes - type 2 Hx Gastroesophageal Reflux: No Hx Renal Disease: No Hx Cancer: Yes - esophageal cancer-going on hospice tomorrow. Hx of HIV: No Hx Hepatitis C: No Hx MRSA: No - Vaccination History Hx Tetanus, Diphtheria Vaccination: Yes Hx Influenza Vaccination: No Hx Pneumococcal Vaccination: No - Social History Hx Tobacco Use: Yes - quit 10yrs ago Hx Chewing Tobacco Use: No Hx Alcohol Use: No Hx Substance Use: No Hx Substance Use Treatment: No Hx Depression: No Hx Physical Abuse: No Hx Emotional Abuse: No Hx Suspected Abuse: No Family Medical History - Family History Mother Family History: Unknown Living Status: Brother Family History: Unknown Hx Family Cancer: Yes Physical Exam - Physical Exam General Appearance: Alert, Anxious, Other - in pain; coughing, gagging Eyes, Ears, Nose, Throat Exam: normal ENT inspection Neck: supple, normal inspection Respiratory: no respiratory distress, wheezing Cardiovascular/Chest: regular rate, rhythm, no edema, other - point tender left chest Gastrointestinal/Abdominal: soft, no organomegaly, other - left sided tenderness but mainly to the left chest wall; PEG tube Extremity: normal range of motion, non-tender, normal inspection, no pedal edema, no calf tenderness Neurologic: no motor/sensory deficits, alert, normal mood/affect, oriented x 3 Skin Exam: normal color, warm/dry Progress - Progress Progress: 09/20/18 15:39 Improved. Wants to go home. We have discussed his lab, images, presentation & discussed potential causes including ACS & PE. He declines any further evaluation even if potentially having a life threatening condition. Family in agreement. Hospice will be at his home tonight to begin a pain medication regimen with him. 09/20/18 15:42 - Results/Orders Results/Orders: Tr ,0.02 D-dimer 2.14 - EKG/XRAY/CT EKG: Sinus, nonspecific ST T wave Chg - NSR @ 83; nml axis, intervals, QRS & T waves XRAY: chest - no acute process Departure - Departure Clinical Impression: Chest pain Qualifiers: Chest pain type: unspecified Qualified Code(s): R07.9 - Chest pain, unspecified Esophageal cancer Qualifiers: Malignant neoplasm of esophagus location: unspecified location Qualified Code(s): C15.9 - Malignant neoplasm of esophagus, unspecified Time of Disposition: 15:44 Disposition: Discharge to Home or Self Care Condition: Poor Departure Forms: ED Discharge - Pt. Copy, Patient Portal Self Enrollment Instructions: Chest Pain (DC) Referrals: Krish Hameed MD [Primary Care Provider] - 09/23/18 Home Medications: Ambulatory Orders Amiodarone HCl 100 mg PO DAILY 08/09/16 Lidocaine Patch 5 % TD DAILY 08/09/16 Tamsulosin [Flomax] 0.4 mg PO DAILY 08/09/16 Ipratropium/Albuterol [Duoneb] 3 ml INH RTQID 08/11/16 Citalopram Hydrobromide [Citalopram] 10 mg PO DAILY 11/19/17 Loratadine [Claritin] 10 mg PO DAILY 11/19/17 Warfarin Sodium 2 mg PO DAILY 11/19/17 Arytcaqy-Albdid-Tcqsdtxd [Neomycin/Polymyxin/Dexame 3.5-66035-9.1] 1 drop LEFT_EYE QID 11/21/17 Levofloxacin [Levaquin] 750 mg PO DAILY #10 tablet 11/23/17 Clindamycin HCl 300 mg PO Q8H #20 cap 01/13/18 levoFLOXacin [Levaquin] 500 mg PO DAILY #7 tab 01/13/18
--- NOTE | 2018-09-20 13:35 | RAD ---
EXAM DESCRIPTION: Chest,1 View CLINICAL HISTORY: 73 years Male, left chest pain COMPARISON: Previous study November 23, 2017 TECHNIQUE: AP portable chest. FINDINGS: Heart size is prominent with normal pulmonary vascularity. Cardiac pacer is present. Port-A-Cath on the left with tip in the mid right heart. Epicardial pacer leads in the region of the left ventricular apex. Plate and screws lower C-spine. No consolidating infiltrate. Minimal discoid atelectasis in left lung base. No pulmonary mass or worrisome nodule. No pneumothorax or pleural effusion. Bones are unremarkable. IMPRESSION: Prominent heart without congestive failure. Electronically signed by: Diaz Georges MD 09/20/2018 1:33 PM CDT
[2018-09-20 17:13] VITALS: BP 107/61; TEMP 99; O2SAT 98
== END 2018-09-20 16:05 | disposition home or self-care (01) ==
LOC: ER 12:00
DX: R07.9 Chest pain, unspecified (principal); C15.9 Malignant neoplasm of esophagus, unspecified; R10.9 Unspecified abdominal pain; I69.351 Hemiplegia and hemiparesis following cerebral infarction affecting right dominant side; J44.9 Chronic obstructive pulmonary disease, unspecified; I51.9 Heart disease, unspecified; E11.9 Type 2 diabetes mellitus without complications; Z93.1 Gastrostomy status; Z95.0 Presence of cardiac pacemaker; Z87.891 Personal history of nicotine dependence; Z79.01 Long term (current) use of anticoagulants; Z79.899 Other long term (current) drug therapy
CPT/HCPCS: 36415; 71045; 80048; 82550; 82553; 83880; 84484; 85025; 85379; 85610; 85730; 93005; J2270; J2405